=== PATIENT | male | born 1945 | race Caucasian/White ===

== ENCOUNTER 2017-08-15 00:47 | Emergency (ER) | payer MEDICARE, OTHER ==
[~2017-08-15] VITALS: Ht 167.6 cm; Wt 99.8 kg
[~2017-08-15 00:47] MED LIST: ACET325 PO; ALBIPROI INH; ALFU10 PO; ALLO100 PO; ALLO300 PO; AMIT50 PO; ASCO500 PO; ASPI325 PO; ASPI81CH PO; AZO STANDARD PO; Acidophilus La100 GM PO; BISA10S PR; CEFD300 PO; CHOL10002 PO; CIPR500 PO; CLIN300 PO; COLC.6 PO; Caffeine200 MG PO; Cytotec200 MCG PO; DOCU100 PO; DURLAZA162.5 MG PO; ENOX30I SC; FENT50TP; FENT50TP TOP; FENT75TP TOP; FERR325 PO; FINA5 PO; FISH1000 PO; FLUO20 PO; GABA100 PO; GABA300; GABA300 PO; GUAI600T33 PO; HYDCHL25 PO; HYOS.125 SL; INDAPAMIDE PO; INDO25 PO; INDO75CR PO; IRON PO; LAVAP17G PO; LEVFLO500 PO; LISI20 PO; LISI5 PO; Lisinopril2.5 MG PO; METCAR500; METCAR500 PO; METF500; METF500 PO; METH10 PO; METO25ER PO; METO50ER PO; MISO100; MISO200 PO; MULVITMIND PO; Milk Of Ma400 MG/5 M; NITR.4SL SL; Nitrostat0.4 MG SL; OLAN5 PO; OMEP10ER PO; OMEP20ER PO; OXYB5 PO; OXYB5ER PO; OXYC5; OXYC5 PO; OXYCODONE PO; Omeprazole20 M1 PO; POTA20PAC PO; POTCHL20ER PO; PRAV10 PO; PRAV20 PO; PREG50 PO; PREG75 PO; PROB500 PO; PROP65 PO; Prilosec Otc20 MG; Prozac20 MG; Prozac20 MG PO; Rocephin 1g1 G/50 ML IV; TAMS.4ER PO; TIVORBEX20 MG PO; TRIA55OI; [UNRECOGNIZED DRUG - OTHER]
[2017-08-15 02:20] LABS: BASOPHILS ABSOLUTE AUTO 0.12 K/mm3 (0.00-0.23); BASOPHILS PERCENT AUTO 1 % (0-2); EOSINOPHILS ABSOLUTE AUTO 0.69 K/mm3 (0.00-0.68); EOSINOPHILS PERCENT AUTO 7 % (0-6); Hematocrit 35.1 % (37.0-53.0); Hemoglobin 11.5 g/dL (13.5-17.5); IMMATURE GRAN ABSOLUTE AUTO 0.17 K/mm3 (0.00-0.10); IMMATURE GRAN PERCENT AUTO 2 % (0-1); LYMPHOCYTES ABSOLUTE AUTO 1.15 K/mm3 (0.84-5.20); LYMPHOCYTES PERCENT AUTO 11 % (21-46); MONOCYTES ABSOLUTE AUTO 0.67 K/mm3 (0.16-1.47); MONOCYTES PERCENT AUTO 6 % (4-13); Mean Corpuscular HGB 30.7 pg (26.0-34.0); Mean Corpuscular HGB Conc 32.8 g/dL (31.5-36.5); Mean Corpuscular Volume 94 fL (80-100); Mean Platelet Volume 9.1 fL (9.1-12.4); NEUTROPHILS ABSOLUTE AUTO 7.79 K/mm3 (1.96-9.15); NEUTROPHILS PERCENT AUTO 74 % (41-73); Platelet Count 242 K/mm3 (150-400); RDW Coefficient Variation 13.3 % (11.7-14.2); Red Blood Cell Count 3.74 M/mm3 (4.30-5.90); White Blood Cell Count 10.59 K/mm3 (4.00-11.30)
[2017-08-15 02:26] LABS: Alanine Aminotransfer (ALT/SGP 16 U/L (12-78); Albumin, Blood 2.9 g/dL (3.4-5.0); Albumin/Globulin Ratio 0.9 (0.8-1.8); Alk Phos 105 U/L (50-136); Anion Gap 12 mmol/L (6-16); Aspartate Aminotrans (AST/SGOT 13 U/L (12-37); Bilirubin, Total 0.3 mg/dL (0.1-1.0); Blood Urea Nitrogen 26 mg/dL (8-24); Bun/Creatinine Ratio 23.2 (12.0-20.0); CO2, Blood 22 mmol/L (21-32); Calcium, Blood 8.3 mg/dL (8.5-10.1); Chloride, Blood 108 mmol/L (98-108); Creatinine, Blood 1.12 mg/dL (0.60-1.20); Globulin, Blood 3.4 g/dL (2.2-4.0); Glomerular Filtration Rate >60 (60-); Glucose, Blood 182 mg/dL (70-99); Magnesium, Blood 1.5 mg/dL (1.6-2.4); Potassium, Blood 3.8 mmol/L (3.5-5.5); Sodium, Blood 142 mmol/L (136-145); Total Protein, Blood 6.3 g/dL (6.4-8.2)
== END 2017-08-15 04:37 | disposition home or self-care (01) ==
LOC: ER 00:47
PROVIDERS: Emergency Medicine
DX: R00.0 Tachycardia, unspecified (principal); G43.909 Migraine, unspecified, not intractable, without status migrainosus; Z88.0 Allergy status to penicillin; Z88.1 Allergy status to other antibiotic agents; Z88.8 Allergy status to other drugs, medicaments and biological substances; Z79.899 Other long term (current) drug therapy; Z79.891 Long term (current) use of opiate analgesic; Z79.84 Long term (current) use of oral hypoglycemic drugs; Z79.82 Long term (current) use of aspirin
CPT/HCPCS: 71046; 80053; 83735; 85025; 93005; 93010; 96360; 96361; 99283; J3475; J7030

== ENCOUNTER 2018-04-11 18:51 | Inpatient (IN) | payer MEDICARE, OTHER ==
[~2018-04-11] VITALS: Ht 165.1 cm; Wt 90.2 kg
[~2018-04-11 18:51] MED LIST changes: -METCAR500
[2018-04-11 19:16] LABS: BASOPHILS ABSOLUTE AUTO 0.11 K/mm3 (0.00-0.23); BASOPHILS PERCENT AUTO 1 % (0-2); EOSINOPHILS ABSOLUTE AUTO 0.04 K/mm3 (0.00-0.68); EOSINOPHILS PERCENT AUTO 0 % (0-6); Hematocrit 42.1 % (37.0-53.0); Hemoglobin 13.2 g/dL (13.5-17.5); IMMATURE GRAN ABSOLUTE AUTO 0.35 K/mm3 (0.00-0.10); IMMATURE GRAN PERCENT AUTO 3 % (0-1); LYMPHOCYTES ABSOLUTE AUTO 1.09 K/mm3 (0.84-5.20); LYMPHOCYTES PERCENT AUTO 9 % (21-46); MONOCYTES ABSOLUTE AUTO 0.77 K/mm3 (0.16-1.47); MONOCYTES PERCENT AUTO 6 % (4-13); Mean Corpuscular HGB 30.7 pg (26.0-34.0); Mean Corpuscular HGB Conc 31.4 g/dL (31.5-36.5); Mean Corpuscular Volume 98 fL (80-100); Mean Platelet Volume 8.6 fL (9.1-12.4); NEUTROPHILS ABSOLUTE AUTO 9.99 K/mm3 (1.96-9.15); NEUTROPHILS PERCENT AUTO 81 % (41-73); Platelet Count 353 K/mm3 (150-400); RDW Coefficient Variation 15.1 % (11.7-14.2); RDW Standard Deviation 54.3 fL (35.1-46.3); White Blood Cell Count 12.35 K/mm3 (4.00-11.30)
[2018-04-11 19:32] LABS: Alanine Aminotransfer (ALT/SGP 34 U/L (12-78); Albumin, Blood 3.3 g/dL (3.4-5.0); Albumin/Globulin Ratio 0.7 (0.8-1.8); Alk Phos 265 U/L (50-136); Anion Gap 9 mmol/L (6-16); Aspartate Aminotrans (AST/SGOT 16 U/L (12-37); Bilirubin, Total 0.3 mg/dL (0.1-1.0); Blood Urea Nitrogen 9 mg/dL (8-24); Bun/Creatinine Ratio 12.5 (12.0-20.0); CO2, Blood 26 mmol/L (21-32); Calcium, Blood 9.2 mg/dL (8.5-10.1); Chloride, Blood 106 mmol/L (98-108); Creatinine, Blood 0.72 mg/dL (0.60-1.20); Globulin, Blood 4.5 g/dL (2.2-4.0); Glomerular Filtration Rate >60 (60-); Glucose, Blood 123 mg/dL (70-99); Sodium, Blood 141 mmol/L (136-145); Total Protein, Blood 7.8 g/dL (6.4-8.2)
[2018-04-11] MEDS ORDERED: Elidel30 GM TOP (19:37)
[2018-04-11] MEDS ORDERED: FENT50TP (19:38)
[2018-04-11] MEDS ORDERED: FERSU90EL PO (19:39)
[2018-04-11] MEDS ORDERED: TAMS.4ER PO (19:39)
[2018-04-11] MEDS ORDERED: FURO20 PO (19:39)
[2018-04-11] MEDS ORDERED: HYOS.125 SL (19:40)
[2018-04-11] MEDS ORDERED: MONT4 PO (19:40)
[2018-04-11] MEDS ORDERED: NASACORT10.8 ML NS (19:40)
[2018-04-11] MEDS ORDERED: NITR.4SL SL (19:40)
[2018-04-11] MEDS ORDERED: Protopic100 G1 (19:41)
[2018-04-11] MEDS ORDERED: POTCHL10ER PO (19:41)
[2018-04-11 23:17] LABS: U Amphetamine Screen Not Detected; U Barbituate Screen Not Detected; U Benzodiazapine Screen Not Detected; U Buprenorphine Screen Not Detected; U Cannabinoids Screen Not Detected; U Cocaine Screen Not Detected; U Methadone Screen Not Detected; U Methamphetamine Screen Not Detected; U Opiates Screen Not Detected; U Oxycodone Screen Not Detected; U Phencyclidine Screen Not Detected; U Propoxyphene Screen Not Detected
[2018-04-11] MEDS ORDERED: FENT50TP TOP (23:43)
[2018-04-12 06:16] LABS: Alanine Aminotransfer (ALT/SGP 25 U/L (12-78); Albumin, Blood 3.1 g/dL (3.4-5.0); Albumin/Globulin Ratio 0.8 (0.8-1.8); Alk Phos 236 U/L (50-136); Anion Gap 8 mmol/L (6-16); Aspartate Aminotrans (AST/SGOT 19 U/L (12-37); Bilirubin, Total 0.5 mg/dL (0.1-1.0); Blood Urea Nitrogen 10 mg/dL (8-24); Bun/Creatinine Ratio 13.6 (12.0-20.0); CO2, Blood 26 mmol/L (21-32); Calcium, Blood 9.1 mg/dL (8.5-10.1); Chloride, Blood 108 mmol/L (98-108); Creatinine, Blood 0.73 mg/dL (0.60-1.20); Globulin, Blood 3.8 g/dL (2.2-4.0); Glomerular Filtration Rate >60 (60-); Glucose, Blood 111 mg/dL (70-99); Sodium, Blood 142 mmol/L (136-145); Total Protein, Blood 6.9 g/dL (6.4-8.2)
[2018-04-12] MEDS ORDERED: Neurontin300 MG PO (18:21)
[2018-04-12] MEDS ORDERED: GABA300 PO (18:21)
[2018-04-12] MEDS ORDERED: METF500C PO (18:21)
[2018-04-12] MEDS ORDERED: Lasix20 MG PO (18:22)
[2018-04-12] MEDS ORDERED: COMBIVENT RESPIM4 GM INH (18:22)
[2018-04-12] MEDS ORDERED: HYOS.125 SL (18:23)
[2018-04-12] MEDS ORDERED: SANTYL30 GM TOP (18:23)
[2018-04-12] MEDS ORDERED: ASPI325 PO (18:24)
[2018-04-12] MEDS ORDERED: MONT10T PO (18:24)
[2018-04-13 05:26] LABS: BASOPHILS ABSOLUTE AUTO 0.14 K/mm3 (0.00-0.23); BASOPHILS PERCENT AUTO 1 % (0-2); EOSINOPHILS ABSOLUTE AUTO 0.22 K/mm3 (0.00-0.68); EOSINOPHILS PERCENT AUTO 1 % (0-6); Hematocrit 43.4 % (37.0-53.0); Hemoglobin 13.7 g/dL (13.5-17.5); IMMATURE GRAN ABSOLUTE AUTO 0.21 K/mm3 (0.00-0.10); IMMATURE GRAN PERCENT AUTO 1 % (0-1); LYMPHOCYTES PERCENT AUTO 11 % (21-46); MONOCYTES ABSOLUTE AUTO 1.17 K/mm3 (0.16-1.47); MONOCYTES PERCENT AUTO 7 % (4-13); Mean Corpuscular HGB 30.6 pg (26.0-34.0); Mean Corpuscular HGB Conc 31.6 g/dL (31.5-36.5); Mean Corpuscular Volume 97 fL (80-100); Mean Platelet Volume 8.8 fL (9.1-12.4); NEUTROPHILS ABSOLUTE AUTO 12.74 K/mm3 (1.96-9.15); NEUTROPHILS PERCENT AUTO 79 % (41-73); Platelet Count 334 K/mm3 (150-400); RDW Coefficient Variation 15.3 % (11.7-14.2); RDW Standard Deviation 54.3 fL (35.1-46.3); Red Blood Cell Count 4.48 M/mm3 (4.30-5.90); White Blood Cell Count 16.18 K/mm3 (4.00-11.30)
[2018-04-13 05:45] LABS: Anion Gap 10 mmol/L (6-16); Blood Urea Nitrogen 17 mg/dL (8-24); CO2, Blood 27 mmol/L (21-32); Calcium, Blood 9.2 mg/dL (8.5-10.1); Chloride, Blood 107 mmol/L (98-108); Creatinine, Blood 0.81 mg/dL (0.60-1.20); Glomerular Filtration Rate >60 (60-); Glucose, Blood 193 mg/dL (70-99); Potassium, Blood 3.6 mmol/L (3.5-5.5); Sodium, Blood 144 mmol/L (136-145)
[2018-04-13 13:28] LABS: BASOPHILS ABSOLUTE AUTO 0.11 K/mm3 (0.00-0.23); BASOPHILS PERCENT AUTO 1 % (0-2); EOSINOPHILS ABSOLUTE AUTO 0.19 K/mm3 (0.00-0.68); EOSINOPHILS PERCENT AUTO 1 % (0-6); Hematocrit 44.9 % (37.0-53.0); Hemoglobin 14.3 g/dL (13.5-17.5); IMMATURE GRAN ABSOLUTE AUTO 0.19 K/mm3 (0.00-0.10); IMMATURE GRAN PERCENT AUTO 1 % (0-1); LYMPHOCYTES ABSOLUTE AUTO 1.65 K/mm3 (0.84-5.20); LYMPHOCYTES PERCENT AUTO 10 % (21-46); MONOCYTES ABSOLUTE AUTO 1.23 K/mm3 (0.16-1.47); MONOCYTES PERCENT AUTO 7 % (4-13); Mean Corpuscular HGB 30.8 pg (26.0-34.0); Mean Corpuscular HGB Conc 31.8 g/dL (31.5-36.5); Mean Corpuscular Volume 97 fL (80-100); Mean Platelet Volume 8.8 fL (9.1-12.4); NEUTROPHILS ABSOLUTE AUTO 13.33 K/mm3 (1.96-9.15); NEUTROPHILS PERCENT AUTO 80 % (41-73); Platelet Count 375 K/mm3 (150-400); RDW Coefficient Variation 15.3 % (11.7-14.2); RDW Standard Deviation 53.7 fL (35.1-46.3); Red Blood Cell Count 4.64 M/mm3 (4.30-5.90)
== END 2018-04-13 16:33 | disposition home health service (06) | DRG 884 ==
LOC: ER 18:51 → MEDS 21:07
PROVIDERS: Emergency Medicine; Student in an Organized Health Care Education/Training Program; ADMIT Internal Medicine
DX: F03.91 Unspecified dementia, unspecified severity, with behavioral disturbance (principal); F05 Delirium due to known physiological condition; G43.109 Migraine with aura, not intractable, without status migrainosus; E11.9 Type 2 diabetes mellitus without complications; Z89.511 Acquired absence of right leg below knee; E78.5 Hyperlipidemia, unspecified; I10 Essential (primary) hypertension; L30.9 Dermatitis, unspecified; M10.9 Gout, unspecified; N40.0 Benign prostatic hyperplasia without lower urinary tract symptoms; F32.9 Major depressive disorder, single episode, unspecified
CPT/HCPCS: 36415; 70450; 70496; 70498; 71046; 80048; 80053; 82947; 84145; 85025; 85651; 86140; 87040; 87086; 93005; 93010; 97110; 97161; 97530; 99285-25; J3010; J7030; Q9967

== ENCOUNTER → 2018-06-23 | Outpatient (CLI) | payer MEDICARE, OTHER ==
[~2018-06-23] MED LIST changes: +COMBIVENT RESPIM4 GM INH; +Elidel30 GM TOP; +FERSU90EL PO; +FURO20 PO; +Lasix20 MG PO; +METF500C PO; +MONT10T PO; +MONT4 PO; +NASACORT10.8 ML NS; +Neurontin300 MG PO; +POTCHL10ER PO; +Protopic100 G1; +SANTYL30 GM TOP
== END | disposition home or self-care (01) ==
LOC: LAB SHORT 16:00 → LAB EV 16:00
DX: N39.0 Urinary tract infection, site not specified (principal)
CPT/HCPCS: 87077; 87086; 87147; 87186

== ENCOUNTER 2018-12-12 10:00 | Day surgery (SDC) | payer MEDICARE, OTHER ==
[~2018-12-12] VITALS: Ht 167.6 cm; Wt 94.6 kg
[~2018-12-12 10:00] MED LIST changes: +ACIDOPHILUS1 EACH PO; +ASPI325EC PO; +AZO CRANBERRY1 EAC1 PO; +Fentanyl1 EAC2 TOP; +GABA100; +Ipratropium Bro30 ML; +KAPSPARGO SPRIN50 MG; +Multiple Vitam1 EAC1 PO; +OMEPRAZOLE20 MG PO; +Pravachol80 MG PO; +Robaxin-750750 MG PO; +VITAMIN D350000 UNIT PO
== END 2018-12-12 12:53 | disposition home or self-care (01) ==
LOC: ORSCSDS 10:00
PROVIDERS: Internal Medicine Gastroenterology
PROC: 0D758ZZ Dilation of Esophagus, Via Natural or Artificial Opening Endoscopic (ICD-10-PCS; principal; 2018-12-12 11:15)
PROC: 0DB98ZX Excision of Duodenum, Via Natural or Artificial Opening Endoscopic, Diagnostic (ICD-10-PCS; principal; 2018-12-12 11:15)
PROC: 0DB58ZX Excision of Esophagus, Via Natural or Artificial Opening Endoscopic, Diagnostic (ICD-10-PCS; principal; 2018-12-12 11:15)
PROC: 0DB68ZX Excision of Stomach, Via Natural or Artificial Opening Endoscopic, Diagnostic (ICD-10-PCS; principal; 2018-12-12 11:15)
DX: R13.10 Dysphagia, unspecified (principal); K29.70 Gastritis, unspecified, without bleeding; K22.10 Ulcer of esophagus without bleeding; K29.50 Unspecified chronic gastritis without bleeding; I10 Essential (primary) hypertension; E78.5 Hyperlipidemia, unspecified; E11.9 Type 2 diabetes mellitus without complications; Z79.899 Other long term (current) drug therapy
CPT/HCPCS: 82947; 88305; 88342; J2704; J7120

== ENCOUNTER 2019-04-03 13:30 | Emergency (ER) | payer MEDICARE, OTHER ==
[~2019-04-03] VITALS: Ht 167.6 cm; Wt 96.6 kg
[2019-04-03 14:39] LABS: BASOPHILS ABSOLUTE AUTO 0.08 K/mm3 (0.00-0.23); BASOPHILS PERCENT AUTO 1 % (0-2); EOSINOPHILS ABSOLUTE AUTO 0.01 K/mm3 (0.00-0.68); EOSINOPHILS PERCENT AUTO 0 % (0-6); Hematocrit 36.3 % (37.0-53.0); Hemoglobin 11.2 g/dL (13.5-17.5); IMMATURE GRAN ABSOLUTE AUTO 0.29 K/mm3 (0.00-0.10); IMMATURE GRAN PERCENT AUTO 2 % (0-1); LYMPHOCYTES ABSOLUTE AUTO 0.98 K/mm3 (0.84-5.20); LYMPHOCYTES PERCENT AUTO 8 % (21-46); MONOCYTES ABSOLUTE AUTO 0.46 K/mm3 (0.16-1.47); MONOCYTES PERCENT AUTO 4 % (4-13); Mean Corpuscular HGB 28.4 pg (26.0-34.0); Mean Corpuscular HGB Conc 30.9 g/dL (31.5-36.5); Mean Corpuscular Volume 92 fL (80-100); Mean Platelet Volume 9.7 fL (9.1-12.4); NEUTROPHILS PERCENT AUTO 86 % (41-73); Platelet Count 103 K/mm3 (150-400); RDW Coefficient Variation 15.5 % (11.7-14.2); Red Blood Cell Count 3.94 M/mm3 (4.30-5.90); White Blood Cell Count 12.52 K/mm3 (4.00-11.30)
[2019-04-03 14:58] LABS: Alanine Aminotransfer (ALT/SGP 9 U/L (12-78); Albumin, Blood 1.6 g/dL (3.4-5.0); Albumin/Globulin Ratio 0.3 (0.8-1.8); Alk Phos 141 U/L (50-136); Anion Gap 6 mmol/L (6-16); Aspartate Aminotrans (AST/SGOT 10 U/L (12-37); Bilirubin, Total 0.4 mg/dL (0.1-1.0); Blood Urea Nitrogen 14 mg/dL (8-24); Bun/Creatinine Ratio 17.5 (12.0-20.0); CO2, Blood 25 mmol/L (21-32); Chloride, Blood 106 mmol/L (98-108); Glomerular Filtration Rate >60 (60-); Glucose, Blood 134 mg/dL (70-99); Potassium, Blood 3.7 mmol/L (3.5-5.5); Sodium, Blood 137 mmol/L (136-145); Total Protein, Blood 6.6 g/dL (6.4-8.2)
[2019-04-03 16:40] LABS: Source, Urine Clean Catch
[2019-04-03 16:47] LABS: Bilirubin, Urine Neg (Neg); Blood, Urine Neg (Neg); Glucose Qualitative, Urine Neg (Neg); Ketones, Urine 2+ (Neg); Leukocyte Esterase, Urine Neg (Neg); Nitrite, Urine Neg (Neg); Protein, Urine Neg (Neg); Specific Gravity, Urine 1.015 (1.003-1.022); Urobilinogen, Urine NORM (Normal)
[2019-04-03 16:54] LABS: Appearance, Urine Clear (Clear); Color, Urine Yellow (P-Yellow)
[2019-04-03] MEDS ORDERED: ONDA4ODT MM (17:51)
== END 2019-04-03 18:08 | disposition home or self-care (01) ==
LOC: ER 13:30
PROVIDERS: Physician Assistant
DX: K29.70 Gastritis, unspecified, without bleeding (principal); K29.80 Duodenitis without bleeding; G43.909 Migraine, unspecified, not intractable, without status migrainosus; Z88.0 Allergy status to penicillin; Z88.1 Allergy status to other antibiotic agents; Z88.8 Allergy status to other drugs, medicaments and biological substances; Z79.899 Other long term (current) drug therapy; Z79.84 Long term (current) use of oral hypoglycemic drugs; Z79.82 Long term (current) use of aspirin
CPT/HCPCS: 36415; 74177; 80053; 81003; 83690; 85025; 86850; 86900; 86901; 96361; 96374-59; 96375; 99284-25; C9113; J1170; J1200; J2405; J2765; J3010; J7030; Q9967

== ENCOUNTER 2019-04-11 03:41 | Emergency (ER) | payer MEDICARE, OTHER ==
[~2019-04-11] VITALS: Ht 177.8 cm; Wt 79.4 kg
[~2019-04-11 03:41] MED LIST changes: -GABA100; +ONDA4ODT MM
[2019-04-11 04:06] LABS: BASOPHILS ABSOLUTE AUTO 0.12 K/mm3 (0.00-0.23); BASOPHILS PERCENT AUTO 2 % (0-2); EOSINOPHILS ABSOLUTE AUTO 0.12 K/mm3 (0.00-0.68); EOSINOPHILS PERCENT AUTO 2 % (0-6); Hematocrit 35.5 % (37.0-53.0); Hemoglobin 10.6 g/dL (13.5-17.5); IMMATURE GRAN ABSOLUTE AUTO 0.09 K/mm3 (0.00-0.10); IMMATURE GRAN PERCENT AUTO 1 % (0-1); LYMPHOCYTES ABSOLUTE AUTO 1.58 K/mm3 (0.84-5.20); LYMPHOCYTES PERCENT AUTO 24 % (21-46); MONOCYTES ABSOLUTE AUTO 0.68 K/mm3 (0.16-1.47); MONOCYTES PERCENT AUTO 10 % (4-13); Mean Corpuscular HGB 28.3 pg (26.0-34.0); Mean Corpuscular HGB Conc 29.9 g/dL (31.5-36.5); Mean Platelet Volume 9.4 fL (9.1-12.4); NEUTROPHILS ABSOLUTE AUTO 4.09 K/mm3 (1.96-9.15); NEUTROPHILS PERCENT AUTO 61 % (41-73); Platelet Count 165 K/mm3 (150-400); RDW Coefficient Variation 16.5 % (11.7-14.2); RDW Standard Deviation 58.2 fL (35.1-46.3); Red Blood Cell Count 3.75 M/mm3 (4.30-5.90); White Blood Cell Count 6.68 K/mm3 (4.00-11.30)
[2019-04-11 04:07] LABS: Mean Corpuscular Volume 95 fL (80-100)
[2019-04-11 04:20] LABS: Prothrombin Time Results 10.7 Sec (9.7-11.5)
[2019-04-11 04:24] LABS: Alanine Aminotransfer (ALT/SGP 7 U/L (12-78); Albumin, Blood 1.6 g/dL (3.4-5.0); Albumin/Globulin Ratio 0.4 (0.8-1.8); Alk Phos 127 U/L (50-136); Anion Gap 4 mmol/L (6-16); Aspartate Aminotrans (AST/SGOT 14 U/L (12-37); Bilirubin, Total 0.3 mg/dL (0.1-1.0); Blood Urea Nitrogen 9 mg/dL (8-24); Bun/Creatinine Ratio 14.3 (12.0-20.0); CO2, Blood 28 mmol/L (21-32); Calcium, Blood 8.1 mg/dL (8.5-10.1); Chloride, Blood 110 mmol/L (98-108); Creatinine, Blood 0.63 mg/dL (0.60-1.20); Ethanol (Alcohol), Blood, Med <3 mg/dL; Globulin, Blood 4.5 g/dL (2.2-4.0); Glomerular Filtration Rate >60 (60-); Glucose, Blood 85 mg/dL (70-99); Potassium, Blood 3.9 mmol/L (3.5-5.5); Sodium, Blood 142 mmol/L (136-145); Total Protein, Blood 6.1 g/dL (6.4-8.2)
[2019-04-11 05:11] LABS: Source, Urine Catheter
[2019-04-11 05:15] LABS: Bilirubin, Urine Neg (Neg); Blood, Urine Neg (Neg); Glucose Qualitative, Urine Neg (Neg); Ketones, Urine 3+ (Neg); Leukocyte Esterase, Urine Neg (Neg); Nitrite, Urine Neg (Neg); Protein, Urine Neg (Neg); Urobilinogen, Urine NORM (Normal)
[2019-04-11 05:37] LABS: Appearance, Urine Clear (Clear); Color, Urine Yellow (P-Yellow)
[2019-04-11] MEDS ORDERED: METO25ER PO (19:52)
[2019-04-11] MEDS ORDERED: TAMS.4ER PO (19:54)
[2019-04-15] MEDS ORDERED: ALLOPURINOL100 M1 (14:18)
== END 2019-04-11 08:00 | disposition home or self-care (01) ==
LOC: ER 03:41
PROVIDERS: Emergency Medicine
DX: R41.0 Disorientation, unspecified (principal); I10 Essential (primary) hypertension; E11.9 Type 2 diabetes mellitus without complications; G43.909 Migraine, unspecified, not intractable, without status migrainosus; N40.0 Benign prostatic hyperplasia without lower urinary tract symptoms; Z88.0 Allergy status to penicillin; Z88.8 Allergy status to other drugs, medicaments and biological substances; Z88.1 Allergy status to other antibiotic agents; Z79.899 Other long term (current) drug therapy; Z79.84 Long term (current) use of oral hypoglycemic drugs; Z79.82 Long term (current) use of aspirin; Z89.111 Acquired absence of right hand; W06.XXXA Fall from bed, initial encounter
CPT/HCPCS: 36415; 51701; 70450; 80053; 81003; 82947; 85025; 85610; 93005; 93010; 99284-25; G0480

== ENCOUNTER 2019-04-11 14:53 | Inpatient (IN) | payer MEDICARE, OTHER ==
[~2019-04-11] VITALS: Ht 172.7 cm; Wt 79.2 kg
[~2019-04-11 14:53] MED LIST changes: -Pravachol80 MG PO; +Pravastatin Sod80 MG PO
[2019-04-11 15:23] LABS: BASOPHILS ABSOLUTE AUTO 0.12 K/mm3 (0.00-0.23); BASOPHILS PERCENT AUTO 2 % (0-2); EOSINOPHILS PERCENT AUTO 1 % (0-6); Hemoglobin 10.5 g/dL (13.5-17.5); IMMATURE GRAN ABSOLUTE AUTO 0.11 K/mm3 (0.00-0.10); IMMATURE GRAN PERCENT AUTO 2 % (0-1); LYMPHOCYTES ABSOLUTE AUTO 1.63 K/mm3 (0.84-5.20); LYMPHOCYTES PERCENT AUTO 22 % (21-46); MONOCYTES ABSOLUTE AUTO 0.63 K/mm3 (0.16-1.47); MONOCYTES PERCENT AUTO 9 % (4-13); Mean Corpuscular HGB 28.2 pg (26.0-34.0); Mean Corpuscular Volume 94 fL (80-100); Mean Platelet Volume 10.1 fL (9.1-12.4); NEUTROPHILS ABSOLUTE AUTO 4.78 K/mm3 (1.96-9.15); NEUTROPHILS PERCENT AUTO 65 % (41-73); Platelet Count 116 K/mm3 (150-400); RDW Coefficient Variation 16.5 % (11.7-14.2); RDW Standard Deviation 55.8 fL (35.1-46.3); Red Blood Cell Count 3.73 M/mm3 (4.30-5.90); White Blood Cell Count 7.37 K/mm3 (4.00-11.30)
[2019-04-11 16:10] LABS: Anion Gap 8 mmol/L (6-16); Blood Urea Nitrogen 10 mg/dL (8-24); Bun/Creatinine Ratio 15.8 (12.0-20.0); CO2, Blood 24 mmol/L (21-32); Calcium, Blood 8.4 mg/dL (8.5-10.1); Chloride, Blood 109 mmol/L (98-108); Creatinine, Blood 0.63 mg/dL (0.60-1.20); Glomerular Filtration Rate >60 (60-); Glucose, Blood 78 mg/dL (70-99); Sodium, Blood 141 mmol/L (136-145)
--- NOTE | 2019-04-11 19:11 | NUR ---
ADMIT NOTE- PT ADMITTED THROUGH THE ED FOR ALTERED MENTAL STATUS ARRIVED AT 1830 ADMIT ASSESSMENT COMPLETED AND IVF STARTED AND IV PROTONIX ADMINISTERED UPON THE PT ARRIVAL ON MEDICAL FLOOR. PT IS VERY AGREEABLE BUT TOTALLY CONFUSED. PT CAN NOT FOLLOW BASIC COMMANDS AND ANSWERS ALMOST ALL QUESTIONS WITH A WORD FOR THE AFFERMATIVE (YEP, SURE, OK, YES, YOU BET) PLEASENTLY CONFUSED. REPORT PASSED TO NIGHT NIRMAL CATALAN IN REPORT. 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
--- NOTE | 2019-04-11 19:43 | NUR ---
REPORT RECEIVED FROM NIRMAL CERVANTES; RESTING COMFORTABLY IN BED.
[2019-04-11] MEDS ORDERED: METO25ER PO (19:52)
[2019-04-11] MEDS ORDERED: TAMS.4ER PO (19:54)
--- NOTE | 2019-04-12 04:22 | NUR ---
SHIFT SUMMARY: 74 Y/O MALE RESTED COMFORTABLY ALL SHIFT; PT INCONTINENT URINE WITH ATTENDS DIAPERS CHANGED BY NURSING STAFF; PT ALERT TO PERSON ONLY WITH ALL SPEECH GARBLED; PT APPEARS TO HAVE NO PAIN OR NAUSEA; BED ALARM APPLIED, BED LOW POSITION WITH CALL LIGHT AT SIDE; CURRENTLY NPO.
[2019-04-12 06:19] LABS: BASOPHILS ABSOLUTE AUTO 0.12 K/mm3 (0.00-0.23); BASOPHILS PERCENT AUTO 2 % (0-2); EOSINOPHILS PERCENT AUTO 4 % (0-6); Hematocrit 31.1 % (37.0-53.0); Hemoglobin 9.4 g/dL (13.5-17.5); IMMATURE GRAN ABSOLUTE AUTO 0.08 K/mm3 (0.00-0.10); IMMATURE GRAN PERCENT AUTO 2 % (0-1); LYMPHOCYTES PERCENT AUTO 27 % (21-46); MONOCYTES PERCENT AUTO 10 % (4-13); Mean Corpuscular HGB 28.7 pg (26.0-34.0); Mean Corpuscular HGB Conc 30.2 g/dL (31.5-36.5); Mean Corpuscular Volume 95 fL (80-100); NEUTROPHILS ABSOLUTE AUTO 2.82 K/mm3 (1.96-9.15); NEUTROPHILS PERCENT AUTO 55 % (41-73); Platelet Count 311 K/mm3 (150-400); RDW Coefficient Variation 16.7 % (11.7-14.2); RDW Standard Deviation 58.2 fL (35.1-46.3); Red Blood Cell Count 3.28 M/mm3 (4.30-5.90); White Blood Cell Count 5.12 K/mm3 (4.00-11.30)
[2019-04-12 06:42] LABS: Magnesium, Blood 1.4 mg/dL (1.6-2.4); Troponin I 0.017 ng/mL (0.000-0.040)
[2019-04-12 06:54] LABS: Alanine Aminotransfer (ALT/SGP <6 U/L (12-78); Albumin, Blood 1.4 g/dL (3.4-5.0); Albumin/Globulin Ratio 0.4 (0.8-1.8); Alk Phos 104 U/L (50-136); Anion Gap 5 mmol/L (6-16); Aspartate Aminotrans (AST/SGOT 12 U/L (12-37); Bilirubin, Total 0.5 mg/dL (0.1-1.0); Blood Urea Nitrogen 9 mg/dL (8-24); Bun/Creatinine Ratio 13.8 (12.0-20.0); CO2, Blood 26 mmol/L (21-32); Calcium, Blood 7.7 mg/dL (8.5-10.1); Chloride, Blood 113 mmol/L (98-108); Creatinine, Blood 0.65 mg/dL (0.60-1.20); Globulin, Blood 3.8 g/dL (2.2-4.0); Glomerular Filtration Rate >60 (60-); Glucose, Blood 74 mg/dL (70-99); Potassium, Blood 3.8 mmol/L (3.5-5.5); Sodium, Blood 144 mmol/L (136-145); Total Protein, Blood 5.2 g/dL (6.4-8.2)
--- NOTE | 2019-04-12 07:00 | NUR ---
ASSUMED CARE OF PT- PER REPORT PT SLEPT THROUGH THE NIGHT ADMIT COMPLETED BY THE NIGHT JANITOR SUPERVISOR, HOME MEDS RECONCILED. PT HAS NO S&S OF DISTRESS OR PAIN NOTED AT SHIFT CHANGE.
--- NOTE | 2019-04-12 07:40 | NUR ---
PT APPEARS TO BE LESS AWARE OF HIS SURROUNDINGS THAN AT THE END OF THE SHIFT LAST NIGHT. PT ANSWERS LAST NIGHT WERE ALL AFFERMATIVE (SEE PREVIOUS NOTE FOR DETAILS). PT IS CURRENTLY ANSWERING YES, YES, YES. MUMBLED SPEECH, NOT ANSWERING APPROPRIATELY RIGHT PUPIL IS 2 MM SMALLER THAN THE LEFT LEFT PUPIL IS SLUGGISH AND MIS-SHAPEN RIGHT PUPIL IS BRISK. PT HAS SOME MILDE FACIAL EDEMA ON THE LEFT (LAYING ON HIS LEFT SIDE). TWO STAFF REPOSITIONED THE PT IN BED, PT TRYING TO ROLL ON TO HIS LEFT SIDE, NOT RESPONDING TO STAFF DOES NOT OPEN HIS EYES WHEN THE STAFF SPEAK TO HIM. NOT ABLE TO DO A FULL NEURO ASSEMENT D/T PT NOT WAKING UP. LEFT SIDE OF MOUTH APPEARS MORE DROOPY THAN THE RIGHT, COULD BE RELATED TO THE SLIGHT EDEMA NOTED. SPOKE TO DR MCKEON AND HE CAME TO THE BEDSIDE TO ASSESS THE PT. ASKED BOUT X-RAYS ORDERED YESTERDAY NOT CURRENTLY AVAILABLE (WERE THEY DONE YET). CALLED IMMAGING TO VERIFY THE IMAGES WERE DONE IN THE ED YESTERDAY AND THEY WERE BUT THEY HAVE NOT YET BEEN READ. TECH WILL ASK THE RADIOLOGIST TO VIEW THEM SHORTLY. DR MCKEON IS AWARE. NEW ORDER RECIEVED FOR AC/HS BLOOD SUGARS, PT BG AT THE TIME OF THIS EVENT WAS 75. RECIEVED A OT ORDER FOR AN AMP OF D50. THAT WAS GIVEN SOON POSSIBLE. ORDER RECIEVED FOR ANOTHER UA FOR THIS PT WELL. PER DR KELLY CATH CAN BE DONE TO OBTAIN THE SAMPLE PT IS NOT COGNISANT AT THIS TIME.
--- NOTE | 2019-04-12 10:51 | NUR ---
CAMPOS PLACEMENT- PT HAS A Hx OF BPH WITH TURP X3. SPOKE TO DR MCKEON PT HAS NOT VOIDED AND A UA WAS ORDERED. BLADDER SCAN SHOWS 491ML. ORDER RECIEVED FOR CAMPOS CATHETER FOR RETENTION. TWO RNS MADE MULTIPLE ATTEMPTS TO PLACE A CAMPOS USEING THE COUDE TIP 16 AND 14 WELL ATTEMPTING WITH THE STIFFER STRAIGHT CATH. CAN NOT GET PASSED THE PROSTATE. SPOKE TO HE IS AWARE ATTEMPTS FAILED. STERILE FIELD MAINTAINED DURRING THE ATTEMPTS, NO URINE FLASH WAS WHITNESSED. SOME LITGHT PINK NOTED ON THE CATHETER TIP LIKELY FROM TRAUMA FROM THE INSERTION PROCESS. SPOKE TO , THERE IS NO UROLOGIST IN [facility], ORDER TO CONTINUE TO MONITOR AT THIS TIME BLADDER SCAN PRN ORDER PLACED. WILL CALL DR IF THE PT STILL HAS NOT VOIDED AND THE VOLUME INCREASES GREATLY. PT STILL NOT COGNITIVELY AWARE OF HIS SURROUNDINGS. WILL CTM.
--- NOTE | 2019-04-12 12:49 | NUR ---
PT ATTEMPTED TO GET OUT OF BED- PT IS ON THE MONITOR, SUPERINTENDENT HOUSE CALLED PT WAS ATTEMPTING TO GET OUT OF BED. WHEN STAFF ENTERED THE ROOM PT WAS BACK IN THE SAME POSITION THAT HE HAS BEEN IN. PT HAD VOIDED A LARGE AMOUNT OF URINE IN HIS ATTENDS. ATTEND CHANGE AND RDZ CHANGED. PT SEEMS TO BE MORE ALERT THAN EARLIER AND SEEMS TO BE ATTEMPTING TO FOLLOW SOME VERY BASIC COMMANDS. BG AT THIS TIME IS 79. BG THIS MORNING WAS 75 THEN AN AMP OF D50 WAS GIVEN BG WAS 148 ON RECHECK, PT DID NOT APPEAR TO HAVE ANY COGNITIVE IMPROVEMENT. CALLED AND RECIEVED AN ORDER FOR D5 WITH 1/2NS AND 20KCL. D/T PT BEING UNABLE TO SAFELY EAT OR TAKE MEDICATIONS (DR AWARE).
--- NOTE | 2019-04-12 14:20 | NUR ---
RECIEVED A CALL FROM THE LAB- PT HAS POSSITIVE BLOOD CULTURES POSSITIVE FOR GRAM POSSITIVE COCCI IN CLUSTERS. PAGED DR MCKEON WITH THE RESULT. WAITING FOR A CALL BACK.
--- NOTE | 2019-04-12 14:26 | NUR ---
RECIEVED A CALL FROM DR MCKEON NEW ORDER FOR IV ABX TO START NOW. PLACED IN THE PT CHART THROUGH ORDERMANAGEMENT.
--- NOTE | 2019-04-12 19:24 | NUR ---
SHIFT SUMMARY- PT STILL MOSTLY NON-RESPONSIVE. KEEPING NPO AT THIS TIME FOR ASPIRATION PRECAUTIONS D/T UNCONCIOUSNESS. PT WILL OCCASSIONALLY RESPOND TO STAFF WITH "YEAH" OR "OK." UNABLE TO PERFORM A NEURO ASSESSMENT D/T PT LEVEL OF CONCIOUSNESS. PT HAS NO S&S OF DISTRESS. CBG'S ORDERED AC/HS AND PRN. BLADDER SCAN Q6 CALL DR FOR VOLUME GREATER THAN 800ML. UNABLE TO PLACE CAMPOS (SEE PREVIOUS NOTE FOR DETAILS).
--- NOTE | 2019-04-13 00:58 | NUR ---
PERFORMED BLADDER SCAN PER ORDER. NOTED 438ML IN BLADDER. WILL CONT TO MONITOR.
--- NOTE | 2019-04-13 04:33 | NUR ---
SHIFT SUMMARY- PT. LETHARGIC T/O THE SHIFT. RESPONDS TO HIS NAME BEING CALLED WITH "YES", BUT OTHERWISE UNABLE TO RESPOND APPROPRIATELY TO OTHER QUESTIONS. PT. RESTED COMFORTABLY IN BED DURING THE NIGHT, NO APPARENT DISTRESS NOTED. SCHEDULED MEDS HELD DUE TO LOC. BLADDER SCAN DONE PER ORDER, PT. TOLERATED WELL. PT. INCONTINENT, SATURATED BRIEF EARLY THIS AM. REPOSITIONED Q2H AND PRN. IV FLUIDS RUNNING. CALL LIGHT WITHIN REACH, SIDE RAILS UP X2, AND BED ALARM ON SAFETY. WILL CONT TO MONITOR.
[2019-04-13 06:00] LABS: BASOPHILS ABSOLUTE AUTO 0.15 K/mm3 (0.00-0.23); BASOPHILS PERCENT AUTO 2 % (0-2); EOSINOPHILS ABSOLUTE AUTO 0.21 K/mm3 (0.00-0.68); EOSINOPHILS PERCENT AUTO 3 % (0-6); Hematocrit 33.1 % (37.0-53.0); Hemoglobin 9.8 g/dL (13.5-17.5); IMMATURE GRAN ABSOLUTE AUTO 0.11 K/mm3 (0.00-0.10); IMMATURE GRAN PERCENT AUTO 2 % (0-1); LYMPHOCYTES ABSOLUTE AUTO 1.29 K/mm3 (0.84-5.20); LYMPHOCYTES PERCENT AUTO 20 % (21-46); MONOCYTES ABSOLUTE AUTO 0.57 K/mm3 (0.16-1.47); MONOCYTES PERCENT AUTO 9 % (4-13); Mean Corpuscular HGB 28.1 pg (26.0-34.0); Mean Corpuscular HGB Conc 29.6 g/dL (31.5-36.5); Mean Corpuscular Volume 95 fL (80-100); NEUTROPHILS ABSOLUTE AUTO 4.06 K/mm3 (1.96-9.15); NEUTROPHILS PERCENT AUTO 64 % (41-73); Platelet Count 269 K/mm3 (150-400); RDW Coefficient Variation 16.8 % (11.7-14.2); RDW Standard Deviation 57.9 fL (35.1-46.3); Red Blood Cell Count 3.49 M/mm3 (4.30-5.90); White Blood Cell Count 6.39 K/mm3 (4.00-11.30)
[2019-04-13 06:16] LABS: Albumin, Blood 1.4 g/dL (3.4-5.0); Anion Gap 5 mmol/L (6-16); Blood Urea Nitrogen 6 mg/dL (8-24); Bun/Creatinine Ratio 10.2 (12.0-20.0); CO2, Blood 26 mmol/L (21-32); Calcium, Blood 7.9 mg/dL (8.5-10.1); Chloride, Blood 111 mmol/L (98-108); Creatinine, Blood 0.59 mg/dL (0.60-1.20); Glomerular Filtration Rate >60 (60-); Glucose, Blood 85 mg/dL (70-99); Magnesium, Blood 1.2 mg/dL (1.6-2.4); Phosphorus, Blood 2.5 mg/dL (2.5-4.9); Potassium, Blood 3.6 mmol/L (3.5-5.5); Sodium, Blood 142 mmol/L (136-145)
--- NOTE | 2019-04-13 09:30 | NUR ---
PT PLEASANT ANSWERING YES NO. [facility] FINALLY ABLE TO TELL ME OLD [facility], [facility]. STATES NO , NO CHILDREN, UNABLE TOTELL ME AGE, DID TELL . DENIES PAIN. ABLE TOTAKE PO PILLS WITH WATER. DID WELL. UNABLE TO TELL ME WHEN LEG AMPUTATED. STATES SISTER KENYETTA:?, NO FURTHER INFO PROVIDED. H/R REG, MURMER NOTED. NO TELE. LUNGS CLEAR, RESP EASY, UNLABORED. RESTING ON L SIDE, SOME EDEMA AT L EYE AREA. BT X4 LAST BM UNKNOWN BY PT. VOIDS INCONT IN ATTENDS. RT BKA. BED BOUND AT THIS TIME. BED IN LOW POSITION, NARCISA LITE IN REACH, BED ALARM ON FOR SAFETY
[2019-04-13 12:05] LABS: Source, Urine Catheter
[2019-04-13 12:56] LABS: U Amphetamine Screen Not Detected; U Barbituate Screen Not Detected; U Benzodiazapine Screen Not Detected; U Cannabinoids Screen Not Detected; U Cocaine Screen Not Detected; U Methadone Screen Not Detected; U Methamphetamine Screen Not Detected; U Opiates Screen Not Detected
[2019-04-13 12:57] LABS: U Buprenorphine Screen Not Detected; U Oxycodone Screen Not Detected; U Propoxyphene Screen Not Detected
[2019-04-13 13:11] LABS: Bilirubin, Urine Neg (Neg); Blood, Urine Neg (Neg); Glucose Qualitative, Urine Neg (Neg); Ketones, Urine Neg (Neg); Leukocyte Esterase, Urine Neg (Neg); Nitrite, Urine Neg (Neg); Protein, Urine Neg (Neg); Urobilinogen, Urine NORM (Normal)
[2019-04-13 13:13] LABS: Appearance, Urine Clear (Clear); Color, Urine Yellow (P-Yellow)
--- NOTE | 2019-04-13 14:37 | NUR ---
04/13/2019 Pt gave this medical underwriter permission to be involved in care on 04/14/2019 0600 to 1200
--- NOTE | 2019-04-13 19:42 | NUR ---
PT PLEASANT TODAY. HAS IMPROVED COGNITION, XWIFE AND SON IN ROOM THIS AFT . HE STATES THEY ASSIST IN CARE FOR HIM. IS MUCH MORE AWAKE. DOES VASCILATE SOME. DID EAT AND DRINK TODAY. TOOK ALL PILLS ORAL WITH H2O. BED IN LOW POSITION, CALL LITE IN REACH, BED ALARM ON FOR SAFETY
[2019-04-14 02:29] LABS: Vancomycin, Trough 19.9 ug/mL (5.0-10.0)
--- NOTE | 2019-04-14 02:56 | NUR ---
BLADDER SCAN DONE PER ORDER. 368ML PRESENT.
--- NOTE | 2019-04-14 04:49 | NUR ---
SHIFT SUMMARY- PT. MORE ALERT THIS SHIFT. PLEASANT AND COOPERATIVE WITH CARE. SCHEDULED MEDS GIVEN ONE AT A TIME W/WATER, PT. TOLERTED WELL. PT. VOIDING IN BRIEF SEVERAL TIMES T/O THE NIGHT. BLADDER SCAN PERFORMED PER ORDER. DENIED ANY PAIN T/O THE SHIFT. CALL LIGHT WITHIN REACH, SIDE RAILS UP X3, AND BED ALARM ON. WILL CONT TO MONITOR.
--- NOTE | 2019-04-14 14:29 | NUR ---
Pt alert to self with good affect. Gave permission for me to assist with his care tomorrow 04/15/19.
--- NOTE | 2019-04-14 14:38 | NUR ---
PT CONTINUES TO WAKE. TALKING INTERACTING. STATES FEELS BETTER. READY TO EAT. WANTS TO GO HOME. FEELS CAN EAT AGAIN. CALLED DR GONZALEZ. PALMA D.Veronika IVF. RESTART GLUCOPHAGE DAILY, STOP CBG. START ADA DIET. DONE
[2019-04-14 15:07] LABS: A/G RATIO 0.6 (0.7-1.7); ALBUMIN 1.8 g/dL (2.9-4.4); ALPHA-1-GLOBULIN 0.3 g/dL (0.0-0.4); ALPHA-2-GLOBULIN 0.8 g/dL (0.4-1.0); BETA GLOBULIN 0.6 g/dL (0.7-1.3); GAMMA GLOBULIN 1.2 g/dL (0.4-1.8); GLOBULIN, TOTAL 2.9 g/dL (2.2-3.9); M-SPIKE 0.4 g/dL (Not Observed); PROTEIN, TOTAL, SERUM 4.7 g/dL (6.0-8.5)
--- NOTE | 2019-04-14 18:29 | NUR ---
PT QUITE PLEASANT COOP A/O. DENIES PAIN. PT CONTINUES TO IMPROVE MENTATION. HE IS TALKING MORE OF FAMILY AND JOB. TALKING ABOUT GOING HOME MORE. HE HAS CALLED FAMILY TODAY. STATES WANTS TO GO HOME SOON. FEELS MORE READY. ADMITS TO ME HE HAS DIFFERENCE IN EYES PUPILS BUT NOT SURE HOW LONG. THINKS AT LEAST MONTHS. HAS BEEN MOVED TO FULL ADA DIET AND EATING SLOWLY BUT WELL. STATES ENJOYING HIS CHICKEN AT THIS TIME . BED I LOW POSITION, CALL LITE IN REACH, BED ALARM ON FOR SAFETY
--- NOTE | 2019-04-15 05:12 | NUR ---
SHIFT SUMMARY- PT'S MENTATION CONTS TO IMPROVE. A&O, PLEASANT AND COOPERATIVE WITH CARE. PT. MORE TALKATIVE THIS SHIFT. DENIED ANY PAIN OR DISCOMFORT. BLADDER SCAN PERFORMED PER ORDER, 109ML IN BLADDER. PT. INCONTINENT, ATTENDS IN PLACE. NO ACUTE CHANGES TO CONDITION. CALL LIGHT WITHIN REACH, SIDE RAILS UP X3, AND BED ALARM ON FOR SAFETY. WILL CONT TO MONITOR.
[2019-04-15] MEDS ORDERED: ALLOPURINOL100 M1 PO (14:18)
[2019-04-15 14:20] LABS: BASOPHILS PERCENT AUTO 1 % (0-2); EOSINOPHILS ABSOLUTE AUTO 0.26 K/mm3 (0.00-0.68); EOSINOPHILS PERCENT AUTO 3 % (0-6); Hematocrit 33.9 % (37.0-53.0); Hemoglobin 10.1 g/dL (13.5-17.5); IMMATURE GRAN PERCENT AUTO 1 % (0-1); LYMPHOCYTES ABSOLUTE AUTO 1.26 K/mm3 (0.84-5.20); LYMPHOCYTES PERCENT AUTO 12 % (21-46); MONOCYTES ABSOLUTE AUTO 1.06 K/mm3 (0.16-1.47); MONOCYTES PERCENT AUTO 10 % (4-13); Mean Corpuscular HGB Conc 29.8 g/dL (31.5-36.5); Mean Corpuscular Volume 94 fL (80-100); Mean Platelet Volume 10.6 fL (9.1-12.4); NEUTROPHILS ABSOLUTE AUTO 7.41 K/mm3 (1.96-9.15); NEUTROPHILS PERCENT AUTO 73 % (41-73); Platelet Count 229 K/mm3 (150-400); RDW Coefficient Variation 17.1 % (11.7-14.2); RDW Standard Deviation 58.7 fL (35.1-46.3); Red Blood Cell Count 3.61 M/mm3 (4.30-5.90); White Blood Cell Count 10.19 K/mm3 (4.00-11.30)
[2019-04-15 14:34] LABS: Vancomycin, Trough 19.4 ug/mL (5.0-10.0)
[2019-04-15 14:46] LABS: Alanine Aminotransfer (ALT/SGP <6 U/L (12-78); Albumin, Blood 1.4 g/dL (3.4-5.0); Albumin/Globulin Ratio 0.3 (0.8-1.8); Alk Phos 101 U/L (50-136); Anion Gap 3 mmol/L (6-16); Aspartate Aminotrans (AST/SGOT 7 U/L (12-37); Bilirubin, Total 0.2 mg/dL (0.1-1.0); Blood Urea Nitrogen 7 mg/dL (8-24); Bun/Creatinine Ratio 10.5 (12.0-20.0); CO2, Blood 29 mmol/L (21-32); Calcium, Blood 7.8 mg/dL (8.5-10.1); Chloride, Blood 108 mmol/L (98-108); Creatinine, Blood 0.67 mg/dL (0.60-1.20); Globulin, Blood 4.2 g/dL (2.2-4.0); Glomerular Filtration Rate >60 (60-); Glucose, Blood 124 mg/dL (70-99); Magnesium, Blood 1.1 mg/dL (1.6-2.4); Potassium, Blood 3.6 mmol/L (3.5-5.5); Sodium, Blood 140 mmol/L (136-145); Total Protein, Blood 5.6 g/dL (6.4-8.2)
--- NOTE | 2019-04-15 17:04 | NUR ---
SHIFT SUMMARY PT RESTING QUIETLY THIS AM AT START OF SHIFT. WOKE EASILY FOR CARE. UP TO CHAIR FOR MEALS; 2P MAX ASSIST TO CHAIR FROM BED D/T RBKA. PT IS 1P ASSIST WITH R LEG PROSTHETIC. PT REPORTED THAT HE WAS INDEPENDENT WITH FWW AT HOME, PRIOR TO COMING TO HOSPITAL. PT HAS BEEN INCONTINENT OF URINE. PER SHIFT REPORT, PT POSSIBLE DID HAVE URINE RETENSION. BLADDER SCAN DONE Q6 HRS, SHOW LESS THAN 100cc PVR. PT ADMITTED FOR AMS AFTER HAVING EGD WITH SEDATION. PER REPORT, PT'S FAMILY ALSO GIVING PT OLD PAIN RELIEVERS FOR SOME UNKNOWN REASON. PT DID C/O RT NECK PAIN EARLIER TODAY AND AGREED TO WANTING SOME TYLENOL. DR GONZALEZ IN TO SEE PT AND ORDERED TYLENOL. PT LATER REPORTED IT EFFECTIVE AND NO FURTHER COMPLAINTS. PT ABLE TO WORK WITH PT/OT TODAY. PT TO D/C TO [facility] FOR REHAB BEFORE GOING BACK HOME. FAMILY IN TO SEE PT. IV D/C'D WNL'S. REPORT CALLED TO [facility] AT 16:50. [facility] TO [place] PT AT 1700. PT DRESSED AND READY TO LEAVE AT THIS TIME.
--- NOTE | 2019-04-15 18:46 | NUR ---
1840 DR GONZALEZ CALLED WITH DISCHARGE MEDICATION CHANGES FOR PT D/C'D TO [facility]. CALLED FAKIRBY AT 1842 AND SPOKE WITH ATTENDING RN; MEDICATIONS TO STOP INCLUDED ASA 325MG AND INDOMETHACIN 75MG BID. MEDICATION TO CHANGE INCLUDED OMEPRAZOLE 40MG BID. ATTENDING RN VERBALIZED CHANGES TO BE MADE. NEW D/C MEDICATION LIST FAXED TO [facility] WELL AFTER SPEAKING WITH ATTENDING RN.
== END 2019-04-15 17:26 | DRG 91 ==
LOC: ER 14:53 → MEDS 17:24
PROVIDERS: Emergency Medicine; Internal Medicine; Pharmacist; ADMIT Internal Medicine Gastroenterology
DX: G92 Toxic encephalopathy (principal); E43 Unspecified severe protein-calorie malnutrition; K31.1 Adult hypertrophic pyloric stenosis; N40.0 Benign prostatic hyperplasia without lower urinary tract symptoms; Z89.512 Acquired absence of left leg below knee; Z96.652 Presence of left artificial knee joint; E78.00 Pure hypercholesterolemia, unspecified; I10 Essential (primary) hypertension; M10.9 Gout, unspecified; G43.909 Migraine, unspecified, not intractable, without status migrainosus; J44.9 Chronic obstructive pulmonary disease, unspecified; F31.9 Bipolar disorder, unspecified; Z89.511 Acquired absence of right leg below knee; K26.9 Duodenal ulcer, unspecified as acute or chronic, without hemorrhage or perforation; T40.605A Adverse effect of unspecified narcotics, initial encounter; Y92.9 Unspecified place or not applicable; E11.9 Type 2 diabetes mellitus without complications; Z79.84 Long term (current) use of oral hypoglycemic drugs
CPT/HCPCS: 36415; 71046; 74018; 80048; 80053; 80069; 80202; 81003; 82947; 83605; 83735; 83880; 84145; 84165; 84443; 84484; 85025; 87040; 94760; 97110; 97116; 97162; 97166; 97530; 97535; 99285; A9270; C9113; J0696; J3370; J3475; J3480; J7050

== ENCOUNTER 2019-04-22 23:03 | Emergency (ER) | payer MEDICARE, OTHER ==
[~2019-04-22] VITALS: Ht 167.6 cm; Wt 95.2 kg
[~2019-04-22 23:03] MED LIST changes: +ALLOPURINOL100 M1 PO
[2019-04-22 23:40] LABS: BASOPHILS PERCENT AUTO 1 % (0-2); EOSINOPHILS ABSOLUTE AUTO 0.21 K/mm3 (0.00-0.68); EOSINOPHILS PERCENT AUTO 3 % (0-6); Hematocrit 34.6 % (37.0-53.0); Hemoglobin 10.5 g/dL (13.5-17.5); IMMATURE GRAN ABSOLUTE AUTO 0.14 K/mm3 (0.00-0.10); IMMATURE GRAN PERCENT AUTO 2 % (0-1); LYMPHOCYTES ABSOLUTE AUTO 2.17 K/mm3 (0.84-5.20); LYMPHOCYTES PERCENT AUTO 29 % (21-46); MONOCYTES ABSOLUTE AUTO 0.61 K/mm3 (0.16-1.47); MONOCYTES PERCENT AUTO 8 % (4-13); Mean Corpuscular HGB 28.5 pg (26.0-34.0); Mean Corpuscular HGB Conc 30.3 g/dL (31.5-36.5); Mean Corpuscular Volume 94 fL (80-100); NEUTROPHILS ABSOLUTE AUTO 4.34 K/mm3 (1.96-9.15); NEUTROPHILS PERCENT AUTO 57 % (41-73); RDW Coefficient Variation 15.7 % (11.7-14.2); RDW Standard Deviation 54.4 fL (35.1-46.3); Red Blood Cell Count 3.68 M/mm3 (4.30-5.90); White Blood Cell Count 7.57 K/mm3 (4.00-11.30)
[2019-04-22 23:44] LABS: Mean Platelet Volume 11.4 fL (9.1-12.4); Platelet Count 162 K/mm3 (150-400)
[2019-04-23 00:01] LABS: Troponin I <0.015 ng/mL (0.000-0.040)
[2019-04-23 00:05] LABS: Alanine Aminotransfer (ALT/SGP 16 U/L (12-78); Albumin, Blood 1.9 g/dL (3.4-5.0); Albumin/Globulin Ratio 0.5 (0.8-1.8); Alk Phos 86 U/L (50-136); Anion Gap 9 mmol/L (6-16); Aspartate Aminotrans (AST/SGOT 24 U/L (12-37); Bilirubin, Total <0.1 mg/dL (0.1-1.0); Blood Urea Nitrogen 11 mg/dL (8-24); Bun/Creatinine Ratio 19.4 (12.0-20.0); CO2, Blood 26 mmol/L (21-32); Calcium, Blood 7.8 mg/dL (8.5-10.1); Chloride, Blood 106 mmol/L (98-108); Creatinine, Blood 0.57 mg/dL (0.60-1.20); Globulin, Blood 4.1 g/dL (2.2-4.0); Glomerular Filtration Rate >60 (60-); Glucose, Blood 118 mg/dL (70-99); Potassium, Blood 3.5 mmol/L (3.5-5.5); Sodium, Blood 141 mmol/L (136-145)
[2019-04-23] MEDS ORDERED: GABA300 PO (11:49)
[2019-04-23] MEDS ORDERED: NEURONTIN300 MG PO (11:49)
[2019-04-23] MEDS ORDERED: MONT10T PO (11:51)
[2019-04-24] MEDS ORDERED: ACET325 PO (01:50)
[2019-04-24] MEDS ORDERED: MISO200 PO (01:51)
[2019-04-24] MEDS ORDERED: MAGNESIUM OXID400 M1 PO (01:52)
[2019-04-24] MEDS ORDERED: METOPROLOL SUCC25 MG PO (15:13)
== END 2019-04-23 01:14 | disposition home or self-care (01) ==
LOC: ER 23:03
PROVIDERS: Emergency Medicine
DX: R00.2 Palpitations (principal); G43.909 Migraine, unspecified, not intractable, without status migrainosus; Z88.0 Allergy status to penicillin; Z88.6 Allergy status to analgesic agent; Z88.1 Allergy status to other antibiotic agents; Z79.84 Long term (current) use of oral hypoglycemic drugs; Z79.82 Long term (current) use of aspirin; Z79.899 Other long term (current) drug therapy
CPT/HCPCS: 80053; 84439; 84443; 84484; 85025; 93005; 93010; 99285-25

== ENCOUNTER 2019-04-23 08:44 | Observation (INO) | payer MEDICARE, OTHER ==
[~2019-04-23] VITALS: Ht 167.6 cm; Wt 78.5 kg
[2019-04-23 09:16] LABS: BASOPHILS ABSOLUTE AUTO 0.16 K/mm3 (0.00-0.23); BASOPHILS PERCENT AUTO 1 % (0-2); EOSINOPHILS ABSOLUTE AUTO 0.15 K/mm3 (0.00-0.68); EOSINOPHILS PERCENT AUTO 1 % (0-6); Hematocrit 37.8 % (37.0-53.0); Hemoglobin 11.5 g/dL (13.5-17.5); IMMATURE GRAN PERCENT AUTO 2 % (0-1); LYMPHOCYTES ABSOLUTE AUTO 2.55 K/mm3 (0.84-5.20); LYMPHOCYTES PERCENT AUTO 21 % (21-46); MONOCYTES ABSOLUTE AUTO 0.84 K/mm3 (0.16-1.47); MONOCYTES PERCENT AUTO 7 % (4-13); Mean Corpuscular HGB 28.1 pg (26.0-34.0); Mean Corpuscular HGB Conc 30.4 g/dL (31.5-36.5); Mean Corpuscular Volume 92 fL (80-100); Mean Platelet Volume 10.1 fL (9.1-12.4); NEUTROPHILS ABSOLUTE AUTO 8.19 K/mm3 (1.96-9.15); NEUTROPHILS PERCENT AUTO 68 % (41-73); Platelet Count 200 K/mm3 (150-400); RDW Standard Deviation 54.3 fL (35.1-46.3); Red Blood Cell Count 4.09 M/mm3 (4.30-5.90); White Blood Cell Count 12.09 K/mm3 (4.00-11.30)
[2019-04-23 09:32] LABS: Anion Gap 6 mmol/L (6-16); Blood Urea Nitrogen 11 mg/dL (8-24); Bun/Creatinine Ratio 17.4 (12.0-20.0); CO2, Blood 27 mmol/L (21-32); Calcium, Blood 8.4 mg/dL (8.5-10.1); Chloride, Blood 103 mmol/L (98-108); Creatinine, Blood 0.63 mg/dL (0.60-1.20); Glomerular Filtration Rate >60 (60-); Glucose, Blood 115 mg/dL (70-99); Magnesium, Blood 1.8 mg/dL (1.6-2.4); Potassium, Blood 4.3 mmol/L (3.5-5.5); Sodium, Blood 136 mmol/L (136-145)
[2019-04-23] MEDS ORDERED: GABA300 PO (11:49)
[2019-04-23] MEDS ORDERED: NEURONTIN300 MG PO (11:49)
[2019-04-23] MEDS ORDERED: MONT10T PO (11:51)
--- NOTE | 2019-04-24 01:19 | NUR ---
ASSUMED CARE OF PATIENT AT APPROXIMATELY 1910 FROM NOAH Travis RN. PATIENT ALERT AND ORIENTED X4; REPORTS FEELS WEAKER SINCE NOT WALKING MUCH RECENTLY. PATIENT REPORTS CHRONIC PAIN IN HIS BACK; MEDICATED PER EMAR. PATIENT DENIES NUMBNESS, TINGLING, DIZZINESS OR NAUSEA. NSR ON TELE; OXYGEN SATURATION ABOVE 90% ON ROOM AIR. PIV TO L UPPER CHEST S/L. PATIENT HAS BEEN INCONTINENT OF URINE AT TIMES; SBA TO 1 ASSIST TO THE BATHROOM. PATIENT HAS R BKA; PROSTHETIC IN ROOM. PATIENT CURRENTLY RESTING IN BED; CALL LIGHT IN REACH; BED IN LOWEST POSITION; BED ALARM ON; WILL CONTINUE TO MONITOR AND ASSESS UNTIL END OF SHIFT.
[2019-04-24] MEDS ORDERED: ACET325 PO (01:50)
[2019-04-24] MEDS ORDERED: MISO200 PO (01:51)
[2019-04-24] MEDS ORDERED: MAGNESIUM OXID400 M1 PO (01:52)
--- NOTE | 2019-04-24 06:26 | NUR ---
PATIENT SLEPT ABOUT FOUR HOURS TOTAL; INCONTINENT OF URINE AT TIMES. VSS. REQUESTED PAIN PILL T/O NIGHT FOR BACK PAIN. WILL CONTINUE TO MONITOR AND ASSESS UNTIL END OF SHIFT.
--- NOTE | 2019-04-24 08:00 | NUR ---
pt sitting in chair watching tv, a/ox3, pleasant and cooperative with care, follows commands well, denies complaints, reports his chronic neck pain of 8/10, pain meds not due until 1200, lungs are clear t/o, resp even and unlabord, no cough noted, r/a, hrr, tele in place running sr per monitor, see strip, no edema noted, ppp+12 to left le, right bka, iv to fa site is clear and patent, btx4, abd flat soft, nontender, last bm yesterday, voids without diff, but also has occ incont, attends in place, skin c/w/d, soha, rafael, call light in reach.
--- NOTE | 2019-04-24 11:49 | NUR ---
Advance Directive education conducted. Patient requested information at Admit and I respond to referral. I talked with patient about the content, importance and purpose of the directive, I went through the booklet a section at a time and discussed the filing process. Patient voiced a comprehension of the material and stated that he will fill it out when his daughter has time to sit sown with him.
--- NOTE | 2019-04-24 14:55 | NUR ---
pt is being discharged to home, wants a pain pill, checked b/p he is 85/58, called Dr. Collado, recieved an order for saline bolus of 250mls, if it doesn't come up with that, may repeat, will monitor. he is in a chair, denies any complaints of symptoms, family here to take him home. call light in reach.
[2019-04-24] MEDS ORDERED: METOPROLOL SUCC25 MG PO (15:13)
--- NOTE | 2019-04-24 18:09 | NUR ---
gave a total of 500ml bolus, sbp never went over 100, going between the 80's and 90's, spoke with Dr. Collado several times, will cancel discharge for now, and keep him overnight, will hold tonights dose of metoprolol, he will stop the lisinopril, he is also going to cut his metoprolol dose to 12.5 rather than 25 bid. explained this to pt, he is agreeable, and spoke with his son. call light in reach.
--- NOTE | 2019-04-25 06:40 | NUR ---
SHIFT SUMMARY PT ALERT; START OF SHIFT WAS QUITE SLEEPY AND LETHARGIC; WAS ABLE TO AROUSE FOR PO MEDS; BECAME MORE AWAKE AND CONVERSIVE LATER IN SHIFT; VSS; BP IMPROVED T/O SHIFT; NO LONGER HYPOTENSIVE; DENIES CHEST PAIN; O2 SATS >93 ON RA; ATTENDS IN PLACE PT IS INCONTINENT AT TIMES; INDEPENDENT W/ PROSTHETIC IN PLACE; DENIES NEEDS AT THIS TIME; CALL LIGHT IN REACH; BED IN LOWEST POSITION; WILL MONITOR CLOSELY UNTIL HAND OFF TO DAY SHIFT RN.
== END 2019-04-25 09:38 | disposition home or self-care (01) ==
LOC: ER 08:44 → PCU 08:45 → ERHOLD 08:45 → PCU 13:52
PROVIDERS: Emergency Medicine; ADMIT Hospitalist
DX: I47.1 Supraventricular tachycardia (principal); I95.9 Hypotension, unspecified; R41.82 Altered mental status, unspecified; N40.0 Benign prostatic hyperplasia without lower urinary tract symptoms; E11.9 Type 2 diabetes mellitus without complications; R32 Unspecified urinary incontinence; E78.5 Hyperlipidemia, unspecified; G89.29 Other chronic pain; M54.5 Low back pain; M54.2 Cervicalgia; F31.9 Bipolar disorder, unspecified; Z79.84 Long term (current) use of oral hypoglycemic drugs; Z79.891 Long term (current) use of opiate analgesic; Z79.899 Other long term (current) drug therapy; Z88.0 Allergy status to penicillin; Z88.1 Allergy status to other antibiotic agents; Z88.5 Allergy status to narcotic agent; Z89.512 Acquired absence of left leg below knee; Z90.49 Acquired absence of other specified parts of digestive tract; Z98.1 Arthrodesis status
CPT/HCPCS: 36415; 71045; 80048; 82947; 83735; 85025; 93005; 93010; 96361; 96372; 96374; 96376; 97116; 97161; 97165; 97530; 97535; 99285-25; A9270-GY; G0378; J0153; J1650; J7030

== ENCOUNTER → 2019-05-06 | Outpatient (CLI) | payer MEDICARE, OTHER ==
[~2019-05-06] MED LIST changes: +K-Dur 20 meq T20 MEQ PO; +MAGNESIUM OXID400 M1 PO; +METOPROLOL SUCC25 MG PO; +NEURONTIN300 MG PO
[2019-05-06 16:27] LABS: BASOPHILS ABSOLUTE AUTO 0.03 K/mm3 (0.00-0.23); BASOPHILS PERCENT AUTO 0 % (0-2); EOSINOPHILS ABSOLUTE AUTO 0.01 K/mm3 (0.00-0.68); EOSINOPHILS PERCENT AUTO 0 % (0-6); Hematocrit 44.3 % (37.0-53.0); Hemoglobin 14.9 g/dL (13.5-17.5); IMMATURE GRAN ABSOLUTE AUTO 0.09 K/mm3 (0.00-0.10); IMMATURE GRAN PERCENT AUTO 1 % (0-1); LYMPHOCYTES ABSOLUTE AUTO 1.06 K/mm3 (0.84-5.20); LYMPHOCYTES PERCENT AUTO 9 % (21-46); MONOCYTES PERCENT AUTO 6 % (4-13); Mean Corpuscular HGB 29.2 pg (26.0-34.0); Mean Corpuscular HGB Conc 33.6 g/dL (31.5-36.5); Mean Platelet Volume 10.8 fL (9.1-12.4); NEUTROPHILS ABSOLUTE AUTO 10.12 K/mm3 (1.96-9.15); NEUTROPHILS PERCENT AUTO 84 % (41-73); Platelet Count 164 K/mm3 (150-400); RDW Standard Deviation 47.8 fL (35.1-46.3); White Blood Cell Count 12.01 K/mm3 (4.00-11.30)
[2019-05-06 16:31] LABS: Mean Corpuscular Volume 87 fL (80-100)
[2019-05-06 16:37] LABS: Alanine Aminotransfer (ALT/SGP 10 U/L (12-78); Albumin, Blood 3.3 g/dL (3.4-5.0); Albumin/Globulin Ratio 0.8 (0.8-1.8); Alk Phos 119 U/L (40-126); Anion Gap 16 mmol/L (6-16); Aspartate Aminotrans (AST/SGOT 17 U/L (12-37); Bilirubin, Total 0.5 mg/dL (0.1-1.0); Blood Urea Nitrogen 4 mg/dL (8-24); Bun/Creatinine Ratio 4.9 (12.0-20.0); CO2, Blood 22 mmol/L (21-32); Calcium, Blood 9.1 mg/dL (8.5-10.1); Chloride, Blood 93 mmol/L (98-108); Creatinine, Blood 0.81 mg/dL (0.60-1.20); Globulin, Blood 4.4 g/dL (2.2-4.0); Glomerular Filtration Rate >60 (60-); Glucose, Blood 157 mg/dL (70-99); Potassium, Blood 2.7 mmol/L (3.5-5.5); Sodium, Blood 131 mmol/L (136-145); Total Protein, Blood 7.7 g/dL (6.4-8.2)
== END ==
LOC: LAB SHORT 16:08 → LAB EV 16:08
PROVIDERS: Physician Assistant Medical
DX: R11.2 Nausea with vomiting, unspecified (principal)
CPT/HCPCS: 80053; 83690; 85025

== ENCOUNTER 2019-05-07 04:36 | Emergency (ER) | payer MEDICARE, OTHER ==
[~2019-05-07] VITALS: Ht 167.6 cm; Wt 81.7 kg
[~2019-05-07 04:36] MED LIST changes: -K-Dur 20 meq T20 MEQ PO
[2019-05-07 05:13] LABS: BASOPHILS ABSOLUTE AUTO 0.02 K/mm3 (0.00-0.23); BASOPHILS PERCENT AUTO 0 % (0-2); EOSINOPHILS ABSOLUTE AUTO 0.04 K/mm3 (0.00-0.68); EOSINOPHILS PERCENT AUTO 0 % (0-6); Hematocrit 40.2 % (37.0-53.0); Hemoglobin 13.3 g/dL (13.5-17.5); IMMATURE GRAN ABSOLUTE AUTO 0.07 K/mm3 (0.00-0.10); IMMATURE GRAN PERCENT AUTO 1 % (0-1); LYMPHOCYTES ABSOLUTE AUTO 1.41 K/mm3 (0.84-5.20); LYMPHOCYTES PERCENT AUTO 11 % (21-46); MONOCYTES ABSOLUTE AUTO 0.72 K/mm3 (0.16-1.47); MONOCYTES PERCENT AUTO 6 % (4-13); Mean Corpuscular HGB Conc 33.1 g/dL (31.5-36.5); Mean Corpuscular Volume 88 fL (80-100); Mean Platelet Volume 9.4 fL (9.1-12.4); NEUTROPHILS ABSOLUTE AUTO 10.12 K/mm3 (1.96-9.15); NEUTROPHILS PERCENT AUTO 82 % (41-73); Platelet Count 283 K/mm3 (150-400); RDW Coefficient Variation 14.9 % (11.7-14.2); RDW Standard Deviation 47.9 fL (35.1-46.3); Red Blood Cell Count 4.58 M/mm3 (4.30-5.90); White Blood Cell Count 12.38 K/mm3 (4.00-11.30)
[2019-05-07 05:30] LABS: Alanine Aminotransfer (ALT/SGP 10 U/L (12-78); Albumin, Blood 2.9 g/dL (3.4-5.0); Albumin/Globulin Ratio 0.7 (0.8-1.8); Alk Phos 104 U/L (50-136); Anion Gap 10 mmol/L (6-16); Aspartate Aminotrans (AST/SGOT 22 U/L (12-37); Bilirubin, Total 0.6 mg/dL (0.1-1.0); Blood Urea Nitrogen 4 mg/dL (8-24); Bun/Creatinine Ratio 7.2 (12.0-20.0); CO2, Blood 27 mmol/L (21-32); Calcium, Blood 8.3 mg/dL (8.5-10.1); Chloride, Blood 89 mmol/L (98-108); Creatinine, Blood 0.56 mg/dL (0.60-1.20); Globulin, Blood 3.9 g/dL (2.2-4.0); Glomerular Filtration Rate >60 (60-); Glucose, Blood 127 mg/dL (70-99); Potassium, Blood 2.5 mmol/L (3.5-5.5); Sodium, Blood 126 mmol/L (136-145); Total Protein, Blood 6.8 g/dL (6.4-8.2)
[2019-05-07] MEDS ORDERED: K-Dur 20 meq T20 MEQ PO (06:28)
== END 2019-05-07 07:35 | disposition home or self-care (01) ==
LOC: ER 04:36
PROVIDERS: Emergency Medicine
DX: E87.6 Hypokalemia (principal); R10.11 Right upper quadrant pain; G43.909 Migraine, unspecified, not intractable, without status migrainosus; Z88.0 Allergy status to penicillin; Z79.899 Other long term (current) drug therapy
CPT/HCPCS: 80053; 83690; 85025; 93005; 93010; 96361; 96374; 96375; 99284-25; J2405; J3010; J7030

== ENCOUNTER 2019-05-21 10:35 | Emergency (ER) | payer MEDICARE, OTHER ==
[~2019-05-21] VITALS: Ht 172.7 cm; Wt 97.5 kg
[~2019-05-21 10:35] MED LIST changes: +K-Dur 20 meq T20 MEQ PO
[2019-05-21 11:10] LABS: BASOPHILS ABSOLUTE AUTO 0.03 K/mm3 (0.00-0.23); BASOPHILS PERCENT AUTO 1 % (0-2); EOSINOPHILS ABSOLUTE AUTO 0.03 K/mm3 (0.00-0.68); EOSINOPHILS PERCENT AUTO 1 % (0-6); Hematocrit 39.9 % (37.0-53.0); Hemoglobin 12.7 g/dL (13.5-17.5); IMMATURE GRAN ABSOLUTE AUTO 0.07 K/mm3 (0.00-0.10); IMMATURE GRAN PERCENT AUTO 2 % (0-1); LYMPHOCYTES ABSOLUTE AUTO 0.82 K/mm3 (0.84-5.20); LYMPHOCYTES PERCENT AUTO 19 % (21-46); MONOCYTES ABSOLUTE AUTO 0.31 K/mm3 (0.16-1.47); MONOCYTES PERCENT AUTO 7 % (4-13); Mean Corpuscular HGB 28.6 pg (26.0-34.0); Mean Corpuscular HGB Conc 31.8 g/dL (31.5-36.5); Mean Corpuscular Volume 90 fL (80-100); Mean Platelet Volume 9.1 fL (9.1-12.4); NEUTROPHILS ABSOLUTE AUTO 2.96 K/mm3 (1.96-9.15); NEUTROPHILS PERCENT AUTO 70 % (41-73); Platelet Count 230 K/mm3 (150-400); RDW Coefficient Variation 15.2 % (11.7-14.2); RDW Standard Deviation 50.3 fL (35.1-46.3); Red Blood Cell Count 4.44 M/mm3 (4.30-5.90); White Blood Cell Count 4.22 K/mm3 (4.00-11.30)
[2019-05-21 11:15] LABS: Alanine Aminotransfer (ALT/SGP 8 U/L (12-78); Albumin, Blood 1.9 g/dL (3.4-5.0); Albumin/Globulin Ratio 0.5 (0.8-1.8); Alk Phos 114 U/L (50-136); Anion Gap 8 mmol/L (6-16); Aspartate Aminotrans (AST/SGOT 8 U/L (12-37); Bilirubin, Total 0.3 mg/dL (0.1-1.0); Blood Urea Nitrogen 8 mg/dL (8-24); Bun/Creatinine Ratio 12.6 (12.0-20.0); CO2, Blood 24 mmol/L (21-32); Calcium, Blood 8.3 mg/dL (8.5-10.1); Chloride, Blood 107 mmol/L (98-108); Creatinine, Blood 0.64 mg/dL (0.60-1.20); Glomerular Filtration Rate >60 (60-); Glucose, Blood 110 mg/dL (70-99); Potassium, Blood 3.4 mmol/L (3.5-5.5); Sodium, Blood 139 mmol/L (136-145); Total Protein, Blood 5.9 g/dL (6.4-8.2)
[2019-05-21 11:59] LABS: Source, Urine Catheter
[2019-05-21 12:02] LABS: Bilirubin, Urine Neg (Neg); Blood, Urine 2+ (Neg); Glucose Qualitative, Urine Neg (Neg); Ketones, Urine 3+ (Neg); Leukocyte Esterase, Urine Neg (Neg); Nitrite, Urine Neg (Neg); Protein, Urine Neg (Neg); Specific Gravity, Urine 1.015 (1.003-1.022); Urobilinogen, Urine NORM (Normal)
[2019-05-21 12:07] LABS: Appearance, Urine Clear (Clear); Color, Urine Yellow (P-Yellow)
[2019-05-21 12:08] LABS: Mucus Mod (0-Heavy); White Blood Cells, Urine 0-2 /hpf (0-5)
[2019-05-21 12:09] LABS: Bacteria Few /hpf; Squamous Epithelial Cells Few /hpf (Few)
[2019-05-22] MEDS ORDERED: INDO50S PO (10:48)
[2019-05-22] MEDS ORDERED: Robaxin750 MG PO (10:49)
[2019-05-22] MEDS ORDERED: Lisinopril2.5 MG PO (10:49)
[2019-05-22] MEDS ORDERED: OLAN5 PO (13:47)
[2019-05-22] MEDS ORDERED: ONDA4ODT SL (13:47)
== END 2019-05-21 13:10 | disposition home or self-care (01) ==
LOC: ER 10:35
PROVIDERS: Emergency Medicine
DX: R10.31 Right lower quadrant pain (principal); F31.9 Bipolar disorder, unspecified; I10 Essential (primary) hypertension; E78.00 Pure hypercholesterolemia, unspecified; M10.9 Gout, unspecified; N40.0 Benign prostatic hyperplasia without lower urinary tract symptoms; E11.9 Type 2 diabetes mellitus without complications; Z79.84 Long term (current) use of oral hypoglycemic drugs; Z88.8 Allergy status to other drugs, medicaments and biological substances; Z88.6 Allergy status to analgesic agent; Z88.1 Allergy status to other antibiotic agents; Z79.899 Other long term (current) drug therapy
CPT/HCPCS: 36415; 74176; 80053; 81001; 83690; 85025; 96374; 99284-25; J2405

== ENCOUNTER 2019-05-22 10:24 | Emergency (ER) | payer MEDICARE, OTHER ==
[~2019-05-22] VITALS: Ht 167.6 cm; Wt 68.0 kg
[2019-05-22] MEDS ORDERED: INDO50S PO (10:48)
[2019-05-22] MEDS ORDERED: Lisinopril2.5 MG PO (10:49)
[2019-05-22] MEDS ORDERED: Robaxin750 MG PO (10:49)
[2019-05-22 11:02] LABS: BASOPHILS ABSOLUTE AUTO 0.05 K/mm3 (0.00-0.23); BASOPHILS PERCENT AUTO 1 % (0-2); EOSINOPHILS ABSOLUTE AUTO 0.02 K/mm3 (0.00-0.68); EOSINOPHILS PERCENT AUTO 0 % (0-6); Hematocrit 40.3 % (37.0-53.0); IMMATURE GRAN ABSOLUTE AUTO 0.19 K/mm3 (0.00-0.10); IMMATURE GRAN PERCENT AUTO 3 % (0-1); LYMPHOCYTES ABSOLUTE AUTO 1.01 K/mm3 (0.84-5.20); LYMPHOCYTES PERCENT AUTO 17 % (21-46); MONOCYTES ABSOLUTE AUTO 0.32 K/mm3 (0.16-1.47); MONOCYTES PERCENT AUTO 5 % (4-13); Mean Corpuscular HGB 28.8 pg (26.0-34.0); Mean Corpuscular HGB Conc 32.3 g/dL (31.5-36.5); Mean Corpuscular Volume 89 fL (80-100); Mean Platelet Volume 9.3 fL (9.1-12.4); NEUTROPHILS ABSOLUTE AUTO 4.44 K/mm3 (1.96-9.15); NEUTROPHILS PERCENT AUTO 74 % (41-73); Platelet Count 276 K/mm3 (150-400); RDW Coefficient Variation 15.5 % (11.7-14.2); RDW Standard Deviation 51.7 fL (35.1-46.3); Red Blood Cell Count 4.51 M/mm3 (4.30-5.90); White Blood Cell Count 6.03 K/mm3 (4.00-11.30)
[2019-05-22 11:27] LABS: Alanine Aminotransfer (ALT/SGP <6 U/L (12-78); Albumin/Globulin Ratio 0.5 (0.8-1.8); Alk Phos 126 U/L (50-136); Anion Gap 10 mmol/L (6-16); Aspartate Aminotrans (AST/SGOT 5 U/L (12-37); Bilirubin, Total 0.5 mg/dL (0.1-1.0); Blood Urea Nitrogen 9 mg/dL (8-24); Bun/Creatinine Ratio 15.7 (12.0-20.0); CO2, Blood 24 mmol/L (21-32); Calcium, Blood 8.3 mg/dL (8.5-10.1); Chloride, Blood 105 mmol/L (98-108); Creatinine, Blood 0.58 mg/dL (0.60-1.20); Globulin, Blood 4.3 g/dL (2.2-4.0); Glomerular Filtration Rate >60 (60-); Glucose, Blood 84 mg/dL (70-99); Magnesium, Blood 1.1 mg/dL (1.6-2.4); Potassium, Blood 3.4 mmol/L (3.5-5.5); Sodium, Blood 139 mmol/L (136-145); Total Protein, Blood 6.3 g/dL (6.4-8.2)
[2019-05-22] MEDS ORDERED: OLAN5 PO (13:47)
[2019-05-22] MEDS ORDERED: ONDA4ODT SL (13:47)
== END 2019-05-22 13:56 | disposition home or self-care (01) ==
LOC: ER 10:24
PROVIDERS: Emergency Medicine
DX: K52.9 Noninfective gastroenteritis and colitis, unspecified (principal); E83.42 Hypomagnesemia; E88.09 Other disorders of plasma-protein metabolism, not elsewhere classified; E11.9 Type 2 diabetes mellitus without complications; F31.9 Bipolar disorder, unspecified; M54.9 Dorsalgia, unspecified; M54.2 Cervicalgia; G89.29 Other chronic pain; Z88.0 Allergy status to penicillin; Z88.1 Allergy status to other antibiotic agents; Z88.8 Allergy status to other drugs, medicaments and biological substances; Z79.84 Long term (current) use of oral hypoglycemic drugs; Z79.899 Other long term (current) drug therapy
CPT/HCPCS: 80053; 83690; 83735; 84443; 84484; 85025; 93005; 93010; 96365; 96372-59; 99284-25; J3475

== ENCOUNTER 2019-07-10 16:58 | Emergency (ER) | payer MEDICARE, OTHER ==
[~2019-07-10] VITALS: Ht 172.7 cm; Wt 78.5 kg
[~2019-07-10 16:58] MED LIST changes: +INDO50S PO; +ONDA4ODT SL; +Robaxin750 MG PO
[2019-07-10 17:28] LABS: BASOPHILS ABSOLUTE AUTO 0.16 K/mm3 (0.00-0.23); BASOPHILS PERCENT AUTO 2 % (0-2); EOSINOPHILS ABSOLUTE AUTO 0.03 K/mm3 (0.00-0.68); EOSINOPHILS PERCENT AUTO 0 % (0-6); Hematocrit 41.3 % (37.0-53.0); IMMATURE GRAN PERCENT AUTO 2 % (0-1); LYMPHOCYTES ABSOLUTE AUTO 1.46 K/mm3 (0.84-5.20); LYMPHOCYTES PERCENT AUTO 14 % (21-46); MONOCYTES ABSOLUTE AUTO 0.58 K/mm3 (0.16-1.47); MONOCYTES PERCENT AUTO 6 % (4-13); Mean Corpuscular HGB 29.1 pg (26.0-34.0); Mean Corpuscular HGB Conc 31.5 g/dL (31.5-36.5); Mean Corpuscular Volume 92 fL (80-100); Mean Platelet Volume 9.3 fL (9.1-12.4); NEUTROPHILS ABSOLUTE AUTO 7.69 K/mm3 (1.96-9.15); NEUTROPHILS PERCENT AUTO 76 % (41-73); Platelet Count 481 K/mm3 (150-400); RDW Coefficient Variation 17.9 % (11.7-14.2); RDW Standard Deviation 61.3 fL (35.1-46.3); Red Blood Cell Count 4.47 M/mm3 (4.30-5.90); White Blood Cell Count 10.12 K/mm3 (4.00-11.30)
[2019-07-10 17:30] LABS: Calcium, Ionized (POC) 1.09 mmol/L (1.10-1.46); Chloride (POC) 102 mmol/L (98-108); Creatinine (POC) 0.7 mg/dL (0.8-1.3); Glucose (ISTAT POC) 194 mg/dL (70-99); Hemoglobin (POC) 14.3 g/dL (13.5-17.5); Potassium (POC) 3.3 mmol/L (3.5-5.5); Sodium (POC) 137 mmol/L (135-148); Total CO2 (POC) 21 mmol/L (21-32)
[2019-07-10 17:52] LABS: Alanine Aminotransfer (ALT/SGP 10 U/L (12-78); Albumin, Blood 2.6 g/dL (3.4-5.0); Albumin/Globulin Ratio 0.6 (0.8-1.8); Alk Phos 136 U/L (50-136); Anion Gap 10 mmol/L (6-16); Aspartate Aminotrans (AST/SGOT 15 U/L (12-37); Bilirubin, Total 0.2 mg/dL (0.1-1.0); Blood Urea Nitrogen 5 mg/dL (8-24); Bun/Creatinine Ratio 6.6 (12.0-20.0); CO2, Blood 23 mmol/L (21-32); Chloride, Blood 105 mmol/L (98-108); Creatinine, Blood 0.76 mg/dL (0.60-1.20); Globulin, Blood 4.4 g/dL (2.2-4.0); Glomerular Filtration Rate >60 (60-); Glucose, Blood 187 mg/dL (70-99); Potassium, Blood 3.4 mmol/L (3.5-5.5); Sodium, Blood 138 mmol/L (136-145); Troponin I 0.047 ng/mL (0.000-0.040)
== END 2019-07-10 19:50 | disposition home or self-care (01) ==
LOC: ER 16:58
PROVIDERS: Emergency Medicine
DX: I47.1 Supraventricular tachycardia (principal); I95.9 Hypotension, unspecified; E87.6 Hypokalemia; I10 Essential (primary) hypertension; E11.9 Type 2 diabetes mellitus without complications; N40.0 Benign prostatic hyperplasia without lower urinary tract symptoms; G43.909 Migraine, unspecified, not intractable, without status migrainosus; F31.9 Bipolar disorder, unspecified; Z88.0 Allergy status to penicillin; Z88.8 Allergy status to other drugs, medicaments and biological substances; Z88.1 Allergy status to other antibiotic agents; Z79.899 Other long term (current) drug therapy
CPT/HCPCS: 71045; 80047; 80053; 83735; 83880; 84484; 85014; 85025; 93005; 93010; 96361; 96374; 99285-25; A9270; J0153; J2405; J7030

== ENCOUNTER 2019-07-11 23:28 | Inpatient (IN) | payer OTHER, MEDICARE ==
[~2019-07-11] VITALS: Ht 172.7 cm; Wt 81.6 kg
[2019-07-12 00:06] LABS: BASOPHILS ABSOLUTE AUTO 0.11 K/mm3 (0.00-0.23); BASOPHILS PERCENT AUTO 1 % (0-2); EOSINOPHILS ABSOLUTE AUTO 0.07 K/mm3 (0.00-0.68); EOSINOPHILS PERCENT AUTO 0 % (0-6); Hematocrit 37.6 % (37.0-53.0); Hemoglobin 11.8 g/dL (13.5-17.5); IMMATURE GRAN ABSOLUTE AUTO 1.34 K/mm3 (0.00-0.10); IMMATURE GRAN PERCENT AUTO 7 % (0-1); LYMPHOCYTES ABSOLUTE AUTO 2.68 K/mm3 (0.84-5.20); LYMPHOCYTES PERCENT AUTO 13 % (21-46); MONOCYTES ABSOLUTE AUTO 1.35 K/mm3 (0.16-1.47); MONOCYTES PERCENT AUTO 7 % (4-13); Mean Corpuscular HGB 29.5 pg (26.0-34.0); Mean Corpuscular HGB Conc 31.4 g/dL (31.5-36.5); Mean Corpuscular Volume 94 fL (80-100); Mean Platelet Volume 9.3 fL (9.1-12.4); NEUTROPHILS ABSOLUTE AUTO 14.92 K/mm3 (1.96-9.15); NEUTROPHILS PERCENT AUTO 73 % (41-73); NRBC ABSOLUTE 0.02 K/mm3 (0.00-0.02); NRBC Auto 0.1 /100 WBC (0.0-0.2); Platelet Count 425 K/mm3 (150-400); RDW Standard Deviation 58.7 fL (35.1-46.3); White Blood Cell Count 20.47 K/mm3 (4.00-11.30)
[2019-07-12 00:17] LABS: BAND PERCENT MAN 3 % (0-8); BASOPHILS PERCENT MAN 0 % (0-2); EOSINOPHILS PERCENT MAN 0 % (0-6); Ethanol (Alcohol), Blood, Med <3 mg/dL; LYMPHOCYTES ABSOLUTE MAN 2.04 K/mm3 (0.84-5.20); LYMPHOCYTES PERCENT MAN 10 % (21-46); METAMYELOCYTE ABSOLUTE MAN 0.61 K/mm3 (0.00-0.00); METAMYELOCYTE PERCENT MAN 3 % (0-0); MONOCYTES ABSOLUTE MAN 1.02 K/mm3 (0.16-1.47); MONOCYTES PERCENT MAN 5 % (4-13); NEUTROPHILS ABSOLUTE MAN 16.78 K/mm3 (1.96-9.15); SEG NEUTROPHILS PERCENT MAN 79 % (41-73); Salicylate <1.7 mg/dL (2.8-20.0); TOTAL CELLS COUNTED 100
[2019-07-12 00:18] LABS: Alanine Aminotransfer (ALT/SGP 15 U/L (12-78); Albumin, Blood 2.4 g/dL (3.4-5.0); Albumin/Globulin Ratio 0.6 (0.8-1.8); Alk Phos 149 U/L (50-136); Anion Gap 20 mmol/L (6-16); Aspartate Aminotrans (AST/SGOT 51 U/L (12-37); Bilirubin, Total 0.4 mg/dL (0.1-1.0); Blood Urea Nitrogen 8 mg/dL (8-24); Bun/Creatinine Ratio 13.9 (12.0-20.0); CO2, Blood 18 mmol/L (21-32); Calcium, Blood 8.2 mg/dL (8.5-10.1); Chloride, Blood 89 mmol/L (98-108); Creatinine, Blood 0.58 mg/dL (0.60-1.20); Glomerular Filtration Rate >60 (60-); Glucose, Blood 270 mg/dL (70-99); Potassium, Blood 4.5 mmol/L (3.5-5.5); Total Protein, Blood 6.4 g/dL (6.4-8.2)
[2019-07-12 00:20] LABS: Sodium, Blood 127 mmol/L (136-145)
[2019-07-12 00:21] LABS: Acetaminophen, Random <2.0 ug/mL (10.0-30.0)
[2019-07-12 00:41] LABS: International Normalized Ratio 0.96; Prothrombin Time Results 10.3 Sec (9.7-11.5)
[2019-07-12 00:45] LABS: Source, Urine Catheter
[2019-07-12 00:48] LABS: Appearance, Urine Hazy (Clear); Bilirubin, Urine Neg (Neg); Blood, Urine 4+ (Neg); Color, Urine Yellow (P-Yellow); Glucose Qualitative, Urine 4+ (Neg); Ketones, Urine 2+ (Neg); Leukocyte Esterase, Urine Neg (Neg); Nitrite, Urine Neg (Neg); Protein, Urine 4+ (Neg); Specific Gravity, Urine 1.025 (1.003-1.022); Urobilinogen, Urine NORM (Normal)
[2019-07-12 00:53] LABS: White Blood Cells, Urine 25-50 /hpf (0-5)
[2019-07-12 00:54] LABS: Amorphous Light (0-Heavy); Bacteria Mod /hpf; Hyaline Casts 0-2 /lpf (0-2); Red Blood Cells, Urine 25-50 /hpf (0-2); Squamous Epithelial Cells Few /hpf (Few)
[2019-07-12 00:57] LABS: U Amphetamine Screen Not Detected; U Barbituate Screen Not Detected; U Benzodiazapine Screen Not Detected; U Buprenorphine Screen Not Detected; U Cannabinoids Screen Not Detected; U Cocaine Screen Not Detected; U Methadone Screen Not Detected; U Methamphetamine Screen Not Detected; U Opiates Screen Not Detected; U Oxycodone Screen Not Detected; U Phencyclidine Screen Not Detected; U Propoxyphene Screen Not Detected
[2019-07-12 01:04] LABS: Troponin I 0.395 ng/mL (0.000-0.040)
[2019-07-12 01:56] LABS: PCO2 Arterial 31.6 mmHg (35-45); PO2 Arterial 110 mmHg (80-100); pH Blood Arterial 7.48 (7.35-7.45)
--- NOTE | 2019-07-12 03:00 | NUR ---
PT ARRIVED TO ICU 4 FROM ER. PT IS MAX TRANSFER TO BED WITH SLIDER SHEET. INTUBATED AND SEDATED WITH PROPOFOL AND VERSED, SEE FLOWSHEET. HEPARIN GTT RUNNING AT 13UNITS/KG/HR PER PHARMACY DOSING. PT WILL TWITCH AT TIMES, NOT RHYTHMIC AND IS SPORATIC. WILL MOVE AWAY FROM TOUCH TO RLE STUMP. PT HAS R BKA. PT'S PUPILS ARE UNEQUAL AND L SIDE IS IRREGULAR SHAPED. THE L PUPIL DOES REACT TO LIGHT BUT IS SLUGGISH. R PUPIL IS PINPOINT AND NON REACTIVE.
[2019-07-12 03:50] LABS: BASOPHILS ABSOLUTE AUTO 0.07 K/mm3 (0.00-0.23); BASOPHILS PERCENT AUTO 0 % (0-2); EOSINOPHILS PERCENT AUTO 0 % (0-6); Hematocrit 32.4 % (37.0-53.0); Hemoglobin 10.9 g/dL (13.5-17.5); IMMATURE GRAN ABSOLUTE AUTO 0.45 K/mm3 (0.00-0.10); IMMATURE GRAN PERCENT AUTO 2 % (0-1); LYMPHOCYTES ABSOLUTE AUTO 0.99 K/mm3 (0.84-5.20); LYMPHOCYTES PERCENT AUTO 5 % (21-46); MONOCYTES ABSOLUTE AUTO 1.88 K/mm3 (0.16-1.47); MONOCYTES PERCENT AUTO 9 % (4-13); Mean Corpuscular HGB 30.2 pg (26.0-34.0); Mean Corpuscular HGB Conc 33.6 g/dL (31.5-36.5); Mean Platelet Volume 8.8 fL (9.1-12.4); NEUTROPHILS ABSOLUTE AUTO 18.36 K/mm3 (1.96-9.15); NEUTROPHILS PERCENT AUTO 84 % (41-73); Platelet Count 344 K/mm3 (150-400); RDW Coefficient Variation 17.2 % (11.7-14.2); RDW Standard Deviation 56.9 fL (35.1-46.3); Red Blood Cell Count 3.61 M/mm3 (4.30-5.90); White Blood Cell Count 21.75 K/mm3 (4.00-11.30)
[2019-07-12 03:54] LABS: Mean Corpuscular Volume 90 fL (80-100)
[2019-07-12 04:08] LABS: Alanine Aminotransfer (ALT/SGP 14 U/L (12-78); Albumin, Blood 2.2 g/dL (3.4-5.0); Albumin/Globulin Ratio 0.6 (0.8-1.8); Alk Phos 134 U/L (50-136); Anion Gap 11 mmol/L (6-16); Aspartate Aminotrans (AST/SGOT 34 U/L (12-37); Bilirubin, Total 0.3 mg/dL (0.1-1.0); Blood Urea Nitrogen 9 mg/dL (8-24); Bun/Creatinine Ratio 16.6 (12.0-20.0); CO2, Blood 25 mmol/L (21-32); Calcium, Blood 7.7 mg/dL (8.5-10.1); Chloride, Blood 94 mmol/L (98-108); Creatinine, Blood 0.54 mg/dL (0.60-1.20); Globulin, Blood 3.7 g/dL (2.2-4.0); Glomerular Filtration Rate >60 (60-); Glucose, Blood 167 mg/dL (70-99); Potassium, Blood 2.6 mmol/L (3.5-5.5); Sodium, Blood 130 mmol/L (136-145); Total Protein, Blood 5.9 g/dL (6.4-8.2)
[2019-07-12 04:11] LABS: Magnesium, Blood 1.1 mg/dL (1.6-2.4)
--- NOTE | 2019-07-12 04:47 | NUR ---
CALLED DR. GRANDA ABOUT CRITICAL LOW MAG. ALSO INFORMED HER OF POTASSIUM LEVEL OF 2.6. NEW ORDERS FOR MAG AND KCL IVPB.
--- NOTE | 2019-07-12 06:46 | NUR ---
SEIZURE UPON ENTERING THE ROOM, RN HEARD PT'S HAND HIT THE BEDRAIL. THEN PT'S WHOLE BODY LOOKED LIKE IT WAS VIBRATING AND HE WAS CHEWING ON THE ETT. EYE'S ARE ROLLED BACK IN HEAD AND HAVE NYSTAGMUS MOVEMENT THAT WAS NOT PRESENT ON ADMIT. GAVE 2MG ATIVAN IV. CALLED DR. GRANDA AND LET HER KNOW. INCREASED PROPOFOL TO 40MCG/KG/MIN. AFTER ATIVAN PT IS NO LONGER VIBRATING. PUPILS REMAIN UNEQUAL WITH L LARGER THAN R. L PUPIL IS IRREGULAR SHAPE. BOTH PUPILS ARE SLUGGISH IN REACTION TO LIGHT. UPWARD GAZE AND NYSTAGMUS STILL PRESENT. WILL BE REPORTING OFF TO DAY RN.
--- NOTE | 2019-07-12 08:58 | NUR ---
ASSUMED CARE REPORT RECEIVED FROM NIRMAL ALVAREZ. PT RESTING IN BED, VENTED, SEDATED, RESTING WITH EYES CLOSED. PT RIDING THE VENT AT RATE OF 16. PT PERIODICALLY HAS A QUICK MUSCLE SPASM WHERE THE SHOULDERS RAISE SLIGHTLY AND ARM MOVES THEN RELAXES, BUT THEN RELAXES. WHEN PROVIDING CARE PT'S BODY TENSES. PT TRIED TO CLAMP MOUTH SHUT FOR ORAL CARE. L PUPIL HAS IRREGULAR, CLOVER LIKE SHAPE, SLUGGISH IN RESPONSE. NO GAG OR COUGH WITH SUCTION. VERSED TITRATED OFF, PROPOFOL INFUSING, BUT TITRATED DOWN DUE TO BP. WILL DUE SEDATION VACATION ONCE SIEVE GRADER TENDER ARRIVES ONSITE.
--- NOTE | 2019-07-12 10:04 | NUR ---
DR VISIT DR. MEDRANO AND DR. MICHELLE AT THE BEDSIDE. PROPOFOL TURNED OFF AT 0930 AND PT'S SBP WENT UP TO 180S AFTERWARDS. DR. MEDRANO SAID TO LEAVE BP HOW IT IS FOR NOW. DR. MEDRANO SWITCHED PT TO SPONTANEOUS MODE AND PT IS PULLING GOOD VOLUMES OF 300-500ML. SPOKE WITH PT'S EX AND SON, EVARISTO TO PROVIDE UPDATE. CONTINUING TO MONITOR.
[2019-07-12 11:40] LABS: Anion Gap 11 mmol/L (6-16); Blood Urea Nitrogen 7 mg/dL (8-24); Bun/Creatinine Ratio 12.5 (12.0-20.0); CO2, Blood 23 mmol/L (21-32); Calcium, Blood 7.8 mg/dL (8.5-10.1); Chloride, Blood 96 mmol/L (98-108); Creatinine, Blood 0.56 mg/dL (0.60-1.20); Glomerular Filtration Rate >60 (60-); Glucose, Blood 131 mg/dL (70-99); Potassium, Blood 3.3 mmol/L (3.5-5.5); Sodium, Blood 130 mmol/L (136-145)
--- NOTE | 2019-07-12 12:17 | NUR ---
ECHOCARDIOGRAM COMPLETE
--- NOTE | 2019-07-12 12:37 | NUR ---
REASSESSMENT PT REMAINS SEDATED AND INTUBATED. SEDATION WAS LIFTED FOR AN HOUR AND A HALF AND PT HAD NO PURPOSEFUL MOVEMENT. HE GOT DIAPHORETIC, HYPERTENSIVE AND EYES MOVED TO AN UPWARD LEFT GAZE. DR. MEDRANO GAVE ORDERS TO RESTART SEDATION AND PLAN FOR HEAD CT IN THE MORNING. FAMILY WAS UPDATED BY DR. MEDRANO. LUNGS CLEAR. PT CONTINUES ON SPONTANEOUS EVEN WITH SEDATION ON. SR, BP IMPROVED WITH SEDATION BACK ON, SEE FLOWSHEET. CONTINUING TO MONITOR.
--- NOTE | 2019-07-12 13:38 | NUR ---
SEIZURE WENT IN ROOM TO CHECK ON PT BECAUSE VENT WAS ALARMING AND PT WAS HAVING A TONIC CLONIC SEIZURE. 2MG ATIVAN GIVEN AND VERSED GTT RESTARTED. SEIZURE RESOLVED. HR WENT INTO BIGEMINY FOR ABOUT 5 MINUTES, THEN CONVERTED BACK TO ST WITH A RATE IN THE LOW 100S. BP REMAINS STABLE. DR. MEDRANO NOTIFIED. CONTINUING TO MONITOR.
--- NOTE | 2019-07-12 16:55 | NUR ---
SHIFT SUMMARY PT HAD ONE MORE EPISODE OF SEIZURE LIKE TREMORING SINCE LAST NOTE THAT RESOLVED WITH ATIVAN. VERSED GTT TITRATED UP TO 5MG/HR AND THAT HAS KEPT PT SEDATED WELL STOPPED THE SEIZURE ACTIVITY. PUPILS REMAIN SLUGGISH AND UNEQUAL. MINIMAL GAG REFLEX AT TIMES, NO COUGH WITH SUCTIONING. SMALL AMT OF LEWIS SPUTUM SUCTIONED OUT OVER THE AFTERNOON. LUNGS CLEAR. SR IN THE 90S WITH OCCASIONAL PVCS. ONE EPISODE OF BIGEMINY AFTER SEIZURE. SBP IN THE 90-LOW 100S WITH VERSED GTT. PT WAS HYPERTENSIVE TO 180S WITHOUT SEDATION. OG WITH SCANT AMT OF BILE APPEARING FLUID IN THE TUBING. CAMPOS HAS PINK COLORED URINE WITH TINY BLOOD CLOTS THIS EVENING, BUT IS ALREADY CLEARING BACK TO YELLOW. FAMILY WAS UPDATED BY NURSING STAFF AND DR. MEDRANO TODAY.
--- NOTE | 2019-07-12 22:05 | NUR ---
PT INTUBATED AND SEDATED WITH VERSED GTT. UNRESPONSIVE TO NOXIOUS STIMULI. OCCASIONALLY WILL HAVE GROSS MOVEMENT OF EXTREMITIES THAT IS UNRELATED TO ANY STIMULI. PT DOES NOT OPEN EYE'S. L EYE DEVIATES TOWARD NOSE WHEN EYE'S ARE MANUALLY OPENED FOR ASSESSMENT. L PUPIL IS IRREGULAR AND LARGER THAN R PUPIL. BOTH ARE SLUGGISH IN REACTION TO LIGHT. PT HAS R BKA. SEE ASSESSMENT.
[2019-07-13 03:26] LABS: BASOPHILS ABSOLUTE AUTO 0.14 K/mm3 (0.00-0.23); BASOPHILS PERCENT AUTO 1 % (0-2); EOSINOPHILS ABSOLUTE AUTO 0.02 K/mm3 (0.00-0.68); EOSINOPHILS PERCENT AUTO 0 % (0-6); Hematocrit 32.8 % (37.0-53.0); Hemoglobin 10.4 g/dL (13.5-17.5); IMMATURE GRAN ABSOLUTE AUTO 0.15 K/mm3 (0.00-0.10); IMMATURE GRAN PERCENT AUTO 1 % (0-1); LYMPHOCYTES ABSOLUTE AUTO 2.15 K/mm3 (0.84-5.20); LYMPHOCYTES PERCENT AUTO 19 % (21-46); MONOCYTES ABSOLUTE AUTO 0.94 K/mm3 (0.16-1.47); MONOCYTES PERCENT AUTO 8 % (4-13); Mean Corpuscular HGB 29.7 pg (26.0-34.0); Mean Corpuscular HGB Conc 31.7 g/dL (31.5-36.5); Mean Corpuscular Volume 94 fL (80-100); Mean Platelet Volume 9.2 fL (9.1-12.4); NEUTROPHILS ABSOLUTE AUTO 8.19 K/mm3 (1.96-9.15); NEUTROPHILS PERCENT AUTO 71 % (41-73); Platelet Count 261 K/mm3 (150-400); RDW Coefficient Variation 18.3 % (11.7-14.2); RDW Standard Deviation 62.9 fL (35.1-46.3); White Blood Cell Count 11.59 K/mm3 (4.00-11.30)
[2019-07-13 03:43] LABS: Alanine Aminotransfer (ALT/SGP 11 U/L (12-78); Albumin, Blood 1.9 g/dL (3.4-5.0); Albumin/Globulin Ratio 0.5 (0.8-1.8); Alk Phos 115 U/L (50-136); Anion Gap 9 mmol/L (6-16); Aspartate Aminotrans (AST/SGOT 25 U/L (12-37); Bilirubin, Total 0.4 mg/dL (0.1-1.0); Blood Urea Nitrogen 6 mg/dL (8-24); Bun/Creatinine Ratio 9.8 (12.0-20.0); CO2, Blood 20 mmol/L (21-32); Calcium, Blood 7.8 mg/dL (8.5-10.1); Chloride, Blood 107 mmol/L (98-108); Creatinine, Blood 0.61 mg/dL (0.60-1.20); Globulin, Blood 3.7 g/dL (2.2-4.0); Glomerular Filtration Rate >60 (60-); Glucose, Blood 78 mg/dL (70-99); Sodium, Blood 136 mmol/L (136-145); Total Protein, Blood 5.6 g/dL (6.4-8.2)
--- NOTE | 2019-07-13 07:18 | NUR ---
SUMMARY PT INTUBATED WITH VERSED FOR SEDATION. NO SEIZURES DURING THIS SHIFT. SEDATION VACATION THIS AM FOR ABOUT HOUR AND HALF. PT IS NOT RESPONSIVE. WILL MOVE LE'S AT TIMES BUT NOT IN RELATION TO STIMULI. PUPILS UNEQUAL AND SLUGGISH. SLIGHT GAZE TO THE RIGHT. WENT TO CT THIS AM. NO OTHER CHANGES.
--- NOTE | 2019-07-13 08:30 | NUR ---
ASSESSMENT- PT SEDATED WITH VERSED 5 MG/HR, DECREASING, WILL MONITOR FOR ANY SIGNS OF SEIZURE ACTIVITY. ORALLY INTUBATED, TUBE SECURE. TOLERATING VENT SETTINGS, LUNGS CLEAR. APICAL REGULAR, NSR. BP STABLE. ABDOMEN SOFT, OGT CLAMPED, HOOKED TO LIS. UO VIA CAMPOS. ONLY MOVES LEFT LEG IN RESPONSE TO PAINFUL STIMULUS. NS AT 125 CC/HR, PERIPHERAL IV SITES INTACT. BILATERAL WRIST RESTRAINTS. WILL MONITOR
--- NOTE | 2019-07-13 10:41 | NUR ---
PHYSICIAN UPDATE- DR. SHAH HERE-UDPATED. FAMILY TO BE HERE AT 1215 TO DISCUSS PLAN. VERSED OFF. PT TOLERATING VENT. NO RESPONSE TO VERBAL STIMULUS
--- NOTE | 2019-07-13 12:54 | NUR ---
FAMILY HERE AT BEDSIDE. PALLIATIVE CARE RN HERE. PT REMAINS WITH EYES CLOSED, DOES MOVE RIGHT LEG SPONTANEOUSLY. NO SEIZURE MOVEMENT NOTED. VENT CHANGES-AC 12, NOW WITH RESPIRATORY RATE 19-20.
--- NOTE | 2019-07-13 13:00 | NUR ---
Clinical Visit: Pt is intubated. Family is at bedside to discuss care and direction of care/goals. Dr. Bazan is present and explains issues and problems. Family is wanting time to decide and discuss options. Time spent with the family after Dr. Bazan left. Questions answered to clarify. They are encouraged to ask for palliative care if further needs arise. No other concerns. Son is expressing guilt for starting CPR on his father when pt had a POLST documenting that he did not want this intervention or intubation. Family to move forward in decision-making together.
--- NOTE | 2019-07-13 14:40 | NUR ---
REVIEWED PLAN OF CARE WITH PT'S FAMILY. REQUEST TO RETURN TOMORROW A.M., MAY ELECT TO EXTUBATE PT TOMORROW IF NO CHANGE IN PT'S STATUS. VS UNCHANGED. TOLERATING VENT. NO SEIZURE ACTIVITY. NO PURPOSEFUL SPONTANEOUS MOVEMENT. RESTRAINTS OFF.
--- NOTE | 2019-07-13 16:00 | NUR ---
TUBE FEEDING STARTED VIA OGT, BILE DRAINAGE 25 CC DISCARDED. NEURO UNCHANGED. ORAL SECRETIONS CLEAR, SUCTIONING MODERATE AMOUNT CLEAR ETT SECRETIONS.
--- NOTE | 2019-07-13 16:50 | NUR ---
Initial spiritual care note: I met with Mr. Jensen' two sons and ex- at bedside. Eldest son was the only one who spoke. He states that he knows his dad "didn't want any of this." He also tells me there are some in the family "who aren't ready to let go." Family allowed me to pray at bedisde. Family plans to have discussion tonight about plan moving forward. Son says he will return tomorrow with decision. Pt appears non-responsive. Gentle anticipatory bereavement children counselor was well recieved.. I will remain available.
--- NOTE | 2019-07-13 17:48 | NUR ---
PT WITH STABLE VS. TOLERATING VENT, NSR, BP STABLE. NO SEDATION. NO RESPONSE TO VERBAL STIMULUS DOES MOVE RIGHT BKA SPONTANEOUSLY. NO ATTEMPTS TO PULL AT LINES. ABDOMEN REMAINS SOFT. CONTINUE TO MONITOR
--- NOTE | 2019-07-13 20:37 | NUR ---
ASSUMED CARE NOTE: ASSUMED CARE OF PT AT 1900, RECEVIED REPORT FROM NIRMAL GONZALEZ. PT IS UNRESPONSIVE AND MAKES UNPURPOSEFUL MOVEMENT OF RIGHT LEG. NYSTAGMUS NOTED TO BOTH EYES, EYES MOVING FROM SIDE TO SIDE WITH A CIRCULAR MOTION. PT HAS A GAG REFLEX. A FEW MINUTES INTO ASSESSMENT, PT'S HEAD BEGAN HAVE A JERKING MOVMENT, ATIVAN GIVEN PER EMAR FOR SEZUIRE ACTIVITY. PT ON VENT WITH SETTINGS @ AC12/400/5/21%, WITH SPO2 @ 96%. PT IS HAVING THICK YELLOW SECRETIONS, RT AT BEDSIDE, PERFORMED LAVAGE TO ETT. ETT SIZE 8.0, 26CM AT LIP. PT IS ON NO SEDATION. TEMP IS 100.8, WILL CONTINUE TO MONITOR, BLANKETS REMOVED, COOLED WASHCLOTHS APPLIED. BOWEL TONES HEARD IN ALL FOUR QUADRANTS. TUBE FEEDING RUNNING @ 25ML/HR , 5ML OF RESIDUAL. BP STABLE. PT IS SINUS WITH HR IN THE 90'S. CAMPOS PATNET AND DRAINING BANDAR COLOR URINE. HEPRAIN DRIP VERFIED WITH LISA Banda RN. WILL CONTINUE TO MONITOR PT T/O SHIFT. BED AT LOWEST LEVEL
--- NOTE | 2019-07-13 22:56 | NUR ---
UPDATE: PT IS HAVING COPIOUS AMOUNTS OF THICK YELLOW SPUTUM, PT'S SATURATIONS WILL DROP TO 86%, SUCTION IS PROVIDED AND STATURATIONS GO BACK UP TO 93% PT SOUNDS COARSE BILAT UPPER LOBES. CPT INITIATED IN BED, MUSIC THERAPY IN BED ALSO TURNED ON.
--- NOTE | 2019-07-14 01:17 | NUR ---
UPDATE: HEPRAIN DOSE REAJUSTED PER ORDER, HEPARIN DRIP RUNNING AT 21UNITS/KG/HR, ORDER VERIFIED WITH NIRMAL SAMUEL. RT CHANGED ETT SUCTIONING TUBING. PT'S LUNG SOUNDS HAVE CLEARED.
[2019-07-14 03:48] LABS: BASOPHILS ABSOLUTE AUTO 0.12 K/mm3 (0.00-0.23); BASOPHILS PERCENT AUTO 1 % (0-2); EOSINOPHILS ABSOLUTE AUTO 0.05 K/mm3 (0.00-0.68); EOSINOPHILS PERCENT AUTO 0 % (0-6); Hematocrit 33.1 % (37.0-53.0); Hemoglobin 10.3 g/dL (13.5-17.5); IMMATURE GRAN PERCENT AUTO 3 % (0-1); LYMPHOCYTES ABSOLUTE AUTO 1.65 K/mm3 (0.84-5.20); LYMPHOCYTES PERCENT AUTO 14 % (21-46); MONOCYTES ABSOLUTE AUTO 1.28 K/mm3 (0.16-1.47); MONOCYTES PERCENT AUTO 11 % (4-13); Mean Corpuscular HGB Conc 31.1 g/dL (31.5-36.5); Mean Corpuscular Volume 93 fL (80-100); Mean Platelet Volume 9.4 fL (9.1-12.4); NEUTROPHILS PERCENT AUTO 72 % (41-73); Platelet Count 244 K/mm3 (150-400); RDW Coefficient Variation 18.2 % (11.7-14.2); RDW Standard Deviation 62.7 fL (35.1-46.3); Red Blood Cell Count 3.55 M/mm3 (4.30-5.90)
[2019-07-14 04:05] LABS: Anion Gap 7 mmol/L (6-16); Blood Urea Nitrogen 8 mg/dL (8-24); Bun/Creatinine Ratio 13.1 (12.0-20.0); CO2, Blood 23 mmol/L (21-32); Calcium, Blood 7.7 mg/dL (8.5-10.1); Chloride, Blood 110 mmol/L (98-108); Creatinine, Blood 0.61 mg/dL (0.60-1.20); Glomerular Filtration Rate >60 (60-); Glucose, Blood 103 mg/dL (70-99); Magnesium, Blood 1.4 mg/dL (1.6-2.4); Phosphorus, Blood 3.3 mg/dL (2.5-4.9); Potassium, Blood 3.2 mmol/L (3.5-5.5); Sodium, Blood 140 mmol/L (136-145)
--- NOTE | 2019-07-14 04:54 | NUR ---
UPDATE: PT'S B/P ELEVATED, LOPRESSOR GIVEN PER EMAR. RT AT BEDSIDE PERFORMING SPONTANEOUS WEAN TRIAL. PT IS PULLING IN GOOD TIDAL VOLUMES, SPO2 MAINTAINING ABOVE 90% RR IN THE 20'S.
--- NOTE | 2019-07-14 05:18 | NUR ---
CALLED REGARDING ELEVATED BP. AND FOR LOW K+, MAG LAB RESULTS. ORDERS GIVEN FOR BP MEDS AND ELECTROLYTE REPLACEMENT.
[2019-07-14 05:22] LABS: PCO2 Arterial 33.2 mmHg (35-45); PO2 Arterial 61.5 mmHg (80-100); pH Blood Arterial 7.47 (7.35-7.45)
--- NOTE | 2019-07-14 06:01 | NUR ---
SHIFT SUMMARY: SEE PREVIOUS NOTES. PT CONTINUES TO BE ON VENT WITH NO CHANGES TO THE SETTINGS. PT HAS BEEN HAVING LARGE AMOUNTS OF THICK YELLOW SPUTUM. ETT SUCTION CATHETER WAS CHANGED TWICE DURING SHIFT, DUE TO IT CLOGGING UP WITH SECRETIONS. PT CONTINUES TO BE UNRESPONSIVE, PT MAKES NON-PURPOSFUL MOVEMENTS WITH RIGHT LEG. PT HAS NOT EXPERIENCED ANY MORE HEAD JERKING SINCE THE START OF SHIFT. PT'S TEMP HAS BEEN BETWEEN 99.1-100.0, COOL RAGS WERE PLACED ON PT, BLANKETS WERE REMOVED. PT'S BLOOD PRESSURE HAS BEEN ELEVATING, NEW ORDERS GIVEN FOR BP MEDS. PT HAS BEEN IN SINUS RYTHYM WITH HR IN THE 80'S WITH FREQUENT PVC'S. TUBE FEED WAS INCREASED TO 35ML/HR OF PIVIOT 1.5. CAMPOS PATNET AND DRAINING BANDAR COLORED URINE. WILL CONTINUE TO MONITOR PT UNTIL REPORT IS GIVEN TO ONCOMING SHIFT.
--- NOTE | 2019-07-14 08:15 | NUR ---
ASSESSMENT- PT WITH EYES CLOSED, PUPILS UNEQUAL BUT REACTIVE. NO RESPONSE TO VERBAL STIMULUS. MOVES LEFT LEG IN RESPONSE TO PAINFUL STIMULUS, MOVES RIGHT LEG SPONTANEOUSLY. ORALLY INTUBATED, TUBE SECURE. TOLERATING VENT SETTING. SUCTIONED MODERATE AMOUNT SECRETIONS FROM ETT. FEBRILE, TEMP 100. LUNGS COARSE BIBASILAR. NORMAL SINUS RHYTHM. K REPLACEMENT INFUSING, MAGNESIUM INFUSION COMPLETED. TUBE FEEDING VIA OGT PIVOT AT NOW GOAL 40 CC/HR. RESIDUAL 45 CC REPLACED. ABDOMEN SOFT. UO VIA CAMPOS. SMALL AMOUNT BLEEDING FROM GUMS AND FROM AROUND CAMPOS CATH. NS AT 125 CC/HR, PIV X 3 INTACT. HEPARIN GTT AT 21 UNITS/KG/HR.
--- NOTE | 2019-07-14 09:00 | NUR ---
RETURNED CALL FROM SON HEATHER, UPDATE GIVEN. PLANS FOR EEG TODAY. QUESTIONS ANSWERED. PT WITH STABLE VS. NO SEIZURE ACTIVITY
--- NOTE | 2019-07-14 10:50 | NUR ---
UPDATE TO PT'S SON. EEG BEING SET UP. HEPARIN GTT INCREASED TO 23 UNITS/KG/HR PER ORDERS
--- NOTE | 2019-07-14 12:09 | NUR ---
EEG COMPLETE. VSS. SHORT RUN OF IDIOVENTRICULAR RHYTHM, NSR NOW. CONTINUE TO MONITOR
--- NOTE | 2019-07-14 14:15 | NUR ---
NEURO UNCHANGED. TOLERATING VENT. LARGE AMOUNT ORAL SECRETIONS.
--- NOTE | 2019-07-14 16:10 | NUR ---
NEURO-BOTH ARMS FLEXION TO PAINFUL STIMULUS. PUPILS UNCHANGED. TOLERATING VENT. RX TWICE FOR SBP 160'S WITH LABETOLOL. NSR, NO ECTOPY. HEPARIN GTT INCREASED TO 24 UNITS/KG/HR, NS AT 125 CC/HR. TOLERATING TUBE FEEDS-LOW RESIDUALS. UO ADEQUATE. PIV X 3 INTACT.
--- NOTE | 2019-07-14 17:00 | NUR ---
PT'S SON AND EXWIFE HERE. PT UPDATE GIVEN, QUESTIONS ANSWERED. PLAN FOR CARE CONFERENCE TOMORROW
--- NOTE | 2019-07-14 17:56 | NUR ---
CARE CONFERENCE- SET FOR 10:00 A.M. 07/14 WITH PT'S SONS AND EX- AND DR. CARRASQUILLO.
--- NOTE | 2019-07-14 21:45 | NUR ---
ASSUMPTION OF CARE: PT UNRESPONSIVE. NOT A&O. NO RESPONSE TO PAIN AT THIS TIME. PUPILS UNEQUAL. GROSS MOVEMENT OF R LEG. NO GAG BUT COUGH INTACT. IN SR. SBP IN THE 140S, HR IN THE 70S. LUNG SOUNDS CLEAR. ON VENT. SETTINGS ARE 12/400/PEEP 5/ FIO2 21%. OG TUBE IN PLACE WITH CONTINUOUS TF. PIVOT 1.5 AT GOAL OF 40MLS/HR. 3 PIVS-PATENT. HEPARIN INFUSING AT 24U/KG-DOSING WEIGHT IS 66KG. PT IS CURRENTLY NOT ON ANY SEDATION. 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 PT HAD EEG DONE TODAY. PLAN IS FOR DR. CARRASQUILLO TO CONFERENCE WITH FAMILY TOMORROW.
--- NOTE | 2019-07-15 01:56 | NUR ---
SPOKE WITH [facility] IN PHARMACY RE APTT. NO CHANGES TO HEPARIN DOSING AT THIS TIME PER PHARMACIST.
--- NOTE | 2019-07-15 06:34 | NUR ---
SHIFT SUMMARY: PT NONRESPONSIVE. INTUBATED BUT NOT SEDATED. NO GAG, NO RESPONSE TO PAINFUL STIMULI. PUPILS UNEQUAL BUT REACTIVE. FEBRILE TOWARDS END OF SHIFT-TEMP 99. LUNG SOUNDS CLEAR. CONTINUES TO HAVE THICK SECRETIONS OUT OF ETT WELL MOD AMT OF ORAL SECRETIONS. ORAL SECRETIONS BLOOD TINGED TOWARDS END OF SHIFT. TONGUE ALSO APPEARS MORE SWOLLEN THAN AT BEGINNING OF SHIFT. SBP IN THE 140-180S. DID RECEIVE A DOSE OF HYDRALAZINE WITH GOOD EFFECT. HR IN THE 90S. BT PRESENT, NO BM THIS SHIFT. OG IN PLACE WITH PIVOT 1.5 AT GOAL AT 40MLS/HR. NO RESIDUALS THIS SHIFT. CAMPOS IN PLACE DRAINING LARGE AMOUNTS OF URINE. AT AROUND 6AM NOTICED URINE WENT FROM BANDAR COLOR TO RED IN COLOR. REQUESTED LAB DRAW PTT A LITTLE EARLIER THAN SCHEDULED. SKIN IS CLEAN AND DRY, ABRASIONS TO L ARM AND STERNUM, SCABS TO L FOOT, REDNESS TO BKA ON R LEG. WILL PASS REPORT TO ONCOMING SHIFT.
[2019-07-15 07:47] LABS: BASOPHILS ABSOLUTE AUTO 0.14 K/mm3 (0.00-0.23); BASOPHILS PERCENT AUTO 1 % (0-2); EOSINOPHILS ABSOLUTE AUTO 0.13 K/mm3 (0.00-0.68); EOSINOPHILS PERCENT AUTO 1 % (0-6); Hematocrit 33.1 % (37.0-53.0); Hemoglobin 10.6 g/dL (13.5-17.5); IMMATURE GRAN ABSOLUTE AUTO 0.49 K/mm3 (0.00-0.10); IMMATURE GRAN PERCENT AUTO 4 % (0-1); LYMPHOCYTES ABSOLUTE AUTO 1.56 K/mm3 (0.84-5.20); LYMPHOCYTES PERCENT AUTO 12 % (21-46); MONOCYTES ABSOLUTE AUTO 1.16 K/mm3 (0.16-1.47); MONOCYTES PERCENT AUTO 9 % (4-13); Mean Corpuscular HGB 29.6 pg (26.0-34.0); Mean Corpuscular Volume 93 fL (80-100); Mean Platelet Volume 9.3 fL (9.1-12.4); NEUTROPHILS ABSOLUTE AUTO 9.79 K/mm3 (1.96-9.15); NEUTROPHILS PERCENT AUTO 74 % (41-73); Platelet Count 289 K/mm3 (150-400); RDW Coefficient Variation 18.4 % (11.7-14.2); RDW Standard Deviation 62.9 fL (35.1-46.3); Red Blood Cell Count 3.58 M/mm3 (4.30-5.90); White Blood Cell Count 13.27 K/mm3 (4.00-11.30)
--- NOTE | 2019-07-15 08:00 | NUR ---
PT REMAINS UNRESPONSIVE. PUPILS UNEQUAL WITH LEFT 5 MM AND RIGHT 3 MM -BOTH SLUGGISH. NYSTAGMUS NOTED. FAMILY TO MEET WITH DR. CARRASQUILLO THIS AM TO DISCUSS PLAN OF CARE AND POSSIBLE COMFORT CARE STATUS. ETT 8.0 @ LIP-ETT TO VENT: AC 12, RR 20 , TIV 400, FIO2 25%, PEEP 5-SATS>90% LUNGS COARSE R>L. MODERATE TO LARGE AMOUNT OF THICK, CLEAR SECRETIONS SUCTIONED FROM MOUTH AND ETT. PT TONGUE IS VERY SWOLLEN, FIRM, AND MINIMAL SPACE IN HIS MOUTH TO DO ORAL CARE AND SUCTION. OGTF WITH MINIMAL RESIDUAL-TF @ GOAL. CAMPOS WITH HEMATURIA NOTED. PTT DRAWN EARLY.
[2019-07-15 08:12] LABS: Alanine Aminotransfer (ALT/SGP 8 U/L (12-78); Albumin, Blood 1.8 g/dL (3.4-5.0); Albumin/Globulin Ratio 0.4 (0.8-1.8); Alk Phos 119 U/L (50-136); Anion Gap 8 mmol/L (6-16); Aspartate Aminotrans (AST/SGOT 30 U/L (12-37); Bilirubin, Total 0.3 mg/dL (0.1-1.0); Blood Urea Nitrogen 8 mg/dL (8-24); Bun/Creatinine Ratio 17.4 (12.0-20.0); CO2, Blood 23 mmol/L (21-32); Chloride, Blood 106 mmol/L (98-108); Creatinine, Blood 0.46 mg/dL (0.60-1.20); Glomerular Filtration Rate >60 (60-); Glucose, Blood 127 mg/dL (70-99); Potassium, Blood 3.5 mmol/L (3.5-5.5); Sodium, Blood 137 mmol/L (136-145); Total Protein, Blood 5.8 g/dL (6.4-8.2)
--- NOTE | 2019-07-15 10:00 | NUR ---
RN PRESENT FOR MEETING WITH DR. CARRASQUILLO AND PT FAMILY. HIS DAUGHTER, JOSEFINA IS THE ELDEST, AND SHE WAS PRESENT VIA CELL PHONE(ON SPEAKER). THERE WAS EXTENSIVE DISCUSSION REGARDING PLAN OF CARE. DR. CARRASQUILLO PRESENTED PT PROGNOSIS AND TREATMENT OPTIONS. IT APPEARED IF THE FAMILY WAS IN AGREEMENT THAT PT SHOULD BE CHANGED TO COMFORT CARE. HOWEVER, PT SON TO CONFIRM THAT THERE IS NOT A POA FOR HEALTH CARE. PT DAUGHTER, KELSEY TO SPEAK WITH ALL FAMILY MEMBERS TO REACH A FINAL CONCENSUS.
--- NOTE | 2019-07-15 12:20 | NUR ---
NO NEURO CHANGES. BED BATH GIVEN AND LINEN CHANGE COMPLETED. SBP TRENDING 180-190'S-MED WITH HYDRALAZINE 10 MG IVP X 1 SEE EMAR. SBP 140'S AFTER HYDRALAZINE GIVEN.
--- NOTE | 2019-07-15 16:30 | NUR ---
NO ACUTE NEURO CHANGES THIS SHIFT. LUNGS SLIGHTLY LESS COARSE THAN PREVIOUS ASSESSMENTS. MAINTAINS SATS>90%-STILL ON FIO2 25% NO VENT CHANGES. CONTINUES TO TOLERATE TF WELL. CAMPOS NOW WITH CLEAR, YELLOW URINE TO UROMETER. RN SPOKE TO KELSEY, PT DAUGHTER-ALLOWED FOR HER TO ASK QUESTIONS REGARDING COMFORT CARE.SHE IS RELAYING INFORMATION TO THE REST OF THE FAMILY. SHE DOES EXPRESS THAT SHE FEELS IF THEY ARE CLOSER TO AN AGREEMENT REGARDING PLAN OF CARE. HOWEVER, SHE IS NOT READY TO MAKE A DECISION TODAY.
--- NOTE | 2019-07-15 20:00 | NUR ---
ASSUMPTION OF CARE: PT UNRESPONSIVE. NO GAG, NO RESPONSE TO PAINFUL STIMULI. PUPILS ARE UNEQUAL BUT REACTIVE. LUNG SOUNDS COARSE ON L SIDE AND DIM IN BASES. VENT SETTINGS ARE 12/400/5/25%. PT TOLERATING VENT WELL. HAS MOD THICK SECRETIONS OUT OF ETT. ORAL SECRETIONS ARE THIN AND BLOOD TINGED. TONGUE IS VERY SWOLLEN MAKING ORAL CARE AND ORAL SUCTIONING DIFFICULT. MILDLY HYPERTENSIVE WITH SBP IN THE 140-150S. IN SINUS RHYTHM. CAMPOS IN PLACE DRAINING BANDAR URINE WITH RED SEDIMENT. OG IN PLACE WITH PIVOT 1.5 AT GOAL. SKIN IS UNCHANGED AND INTACT. PT DOES HAVE GENERALIZED EDEMA T/O. 3 PIVS-2 IN RA AND 1 IN LA. HEPARIN INFUSING AT 24U/KG-DOSING WEIGHT IS 66KG. NORMAL SALINE INFUSING AT 125MLS/HR. WILL CONTINUE TO MONITOR
--- NOTE | 2019-07-15 22:33 | NUR ---
CALLED [facility] TO UPDATE ON PT'S APTT LEVEL. AWAITING HEPARIN DOSING CHANGES
[2019-07-16 03:23] LABS: BASOPHILS ABSOLUTE AUTO 0.11 K/mm3 (0.00-0.23); BASOPHILS PERCENT AUTO 1 % (0-2); EOSINOPHILS ABSOLUTE AUTO 0.19 K/mm3 (0.00-0.68); EOSINOPHILS PERCENT AUTO 2 % (0-6); Hemoglobin 9.6 g/dL (13.5-17.5); IMMATURE GRAN ABSOLUTE AUTO 0.51 K/mm3 (0.00-0.10); IMMATURE GRAN PERCENT AUTO 5 % (0-1); LYMPHOCYTES ABSOLUTE AUTO 1.61 K/mm3 (0.84-5.20); LYMPHOCYTES PERCENT AUTO 14 % (21-46); MONOCYTES ABSOLUTE AUTO 1.13 K/mm3 (0.16-1.47); MONOCYTES PERCENT AUTO 10 % (4-13); Mean Corpuscular Volume 94 fL (80-100); Mean Platelet Volume 9.5 fL (9.1-12.4); NEUTROPHILS ABSOLUTE AUTO 7.67 K/mm3 (1.96-9.15); NEUTROPHILS PERCENT AUTO 68 % (41-73); Platelet Count 282 K/mm3 (150-400); RDW Coefficient Variation 18.3 % (11.7-14.2); RDW Standard Deviation 63.4 fL (35.1-46.3); White Blood Cell Count 11.22 K/mm3 (4.00-11.30)
[2019-07-16 03:44] LABS: Alanine Aminotransfer (ALT/SGP 8 U/L (12-78); Albumin, Blood 1.7 g/dL (3.4-5.0); Albumin/Globulin Ratio 0.5 (0.8-1.8); Alk Phos 107 U/L (50-136); Anion Gap 7 mmol/L (6-16); Aspartate Aminotrans (AST/SGOT 28 U/L (12-37); Bilirubin, Total 0.3 mg/dL (0.1-1.0); Blood Urea Nitrogen 10 mg/dL (8-24); Bun/Creatinine Ratio 23.3 (12.0-20.0); CO2, Blood 25 mmol/L (21-32); Calcium, Blood 7.9 mg/dL (8.5-10.1); Chloride, Blood 105 mmol/L (98-108); Creatinine, Blood 0.43 mg/dL (0.60-1.20); Globulin, Blood 3.7 g/dL (2.2-4.0); Glomerular Filtration Rate >60 (60-); Glucose, Blood 130 mg/dL (70-99); Potassium, Blood 3.3 mmol/L (3.5-5.5); Sodium, Blood 137 mmol/L (136-145); Total Protein, Blood 5.4 g/dL (6.4-8.2)
--- NOTE | 2019-07-16 05:21 | NUR ---
PT TONGUE VERY SWOLLEN WITH BLOOD TINGED ORAL SECRETIONS. PT POSSIBLY BITING DOWN ON TONGUE. BITE BLOCK PLACED. TONGUE IS VERY RED AND BOTTOM LOOKS LIKE RAW [employer]BURGER. MOD AMOUNT OF BLOOD SUCTIONED FROM MOUTH. ORAL CARE HELD AT THIS TIME.
--- NOTE | 2019-07-16 05:55 | NUR ---
SHIFT SUMMARY: NO ACUTE CHANGES T/O SHIFT. VENT SETTINGS REMAIN UNCHANGED. LUNG SOUNDS CLEAR. PT HYPERTENSIVE WITH SUCTIONING AND REPOSITIONING. IN SR. CAMPOS IN PLACE DRAINING CLEAR YELLOW-BANDAR URINE. NO BM THIS SHIFT. SKIN IS CLEAN AND DRY. PERIPHERAL IVS REMAIN IN PLACE. HEPARIN INFUSING AT 25 UNITS/KG AND NS INFUSING AT 125MLS/HR. PT WAS FOUND TO BE POSSIBLY BITING DOWN ON TONGUE. BITE BLOCK PLACED AND TAPED TO ETT. MOD AMT OF BLOODY ORAL SECRETIONS WERE SUCTIONED OUT. WILL PASS REPORT TO ONCOMING SHIFT
--- NOTE | 2019-07-16 07:45 | NUR ---
PT REMAINS COMATOSE. PT OPENED EYES WITH NOXIOUS STIMULI AND IS BLINKING. PUPILS REMAIN UNEQUAL. RIGHT, UPWARD GAZE. NO CORNEAL REFLEX. PT IS STILL CHEWING ON ETT/BITE BLOCK. PT TONGUE IS RED AND SWOLLEN WITH SOME ABRASIONS FROM BITING IT. ORAL SUCTION PRODUCTIVE OF LARGE AMOUNT OF BLOODY SECRETIONS A RESULT. PROPOFOL CONTINUES @ 10 MCG/KG/MIN-IT WAS INITITATED DURING THE NIGHT PT WAS COUGHING AND HIGH PRESSURING THE VENT. ETT 8.0 26 @ LIP WITH BITE BLOCK TAPED IN PLACE WELL. LUNGS SLIGHTLY COARSE THIS AM LEFT>RIGHT. MAINTAINS SATS>90% ON FIO2 25%. PT TOLERATING TF WELL @ GOAL OF 40 CC/HR. CAMPOS WITH ADEQUATE URINE OUTPUT-SOME RED SEDIMENT NOTED. HEPARIN DRIP CONTINUES-NEXT PTT @ 1100.
--- NOTE | 2019-07-16 09:35 | NUR ---
DR. MARIA HERE TO SEE PT. PROPOFOL DRIP OFF. NS TKO.
--- NOTE | 2019-07-16 11:22 | NUR ---
DR. CARRASQUILLO IN TO SEE PT @ APROX. 1100. UPDATED TO CURRENT VS AND STATUS. NO ACUTE NEURO CHANGES. DR. CARRASQUILLO UPDATED KELSEY, PT DAUGHTER. THE FAMILY INTENDS TO REACH A DECISION ON PLAN OF CARE BY 1600 TODAY.
--- NOTE | 2019-07-16 16:25 | NUR ---
PT PALE AND DIAPHORETIC. HR 100'S WITH FREQUENT ECTOPY NOTED. 188/130. PT COUGHING AND CHEWING ON ETT-BITE BLOCK HAD SLIPPED OUT PARTIAL. THEREFORE, REMOVED BITE BLOCK. PT TONGUE REMAINS SWOLLEN AND STIFF-WITH ABRASIONS NOTED. FEWER RED ORAL SECRETIONS THIS AFTERNOON. MED WITH ATIVAN 2 MG IVP X 1 -SEE EMAR. SHORTLY AFTER MED WITH ATIVAN, HR RETURNED TO 90'S AND SBP 150'S. PT NOT LONGER COUGHING.
--- NOTE | 2019-07-16 17:35 | NUR ---
NO ACUTE NEURO CHANGES THIS SHIFT. STILL AWAITING PHONE CALL FROM PT DAUGHTER, KELSEY TO VERIFY THAT THE FAMILY HAS REACHED THE DECISION TO MAKE PT COMFORT CARE STATUS.
--- NOTE | 2019-07-16 18:32 | NUR ---
PT DAUGHTER CALLED. THE FAMILY HAS DECIDED TO MAKE PT COMFORT CARE AT THIS TIME. DR. MARIA MADE AWARE. DR. CARRASQUILLO INFORMED.
--- NOTE | 2019-07-16 18:51 | NUR ---
PT EXTUBATED-NOW COMFORT CARE. 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
--- NOTE | 2019-07-16 19:05 | NUR ---
PT FAMILY ARRIVED AT BEDSIDE. PT RESP AGONAL. ECG SHOWS JUNCTIONAL RHYTHM WITH RATE IN THE 40'S. PAINT CAROTID PULSE.
--- NOTE | 2019-07-16 19:06 | NUR ---
PT @ 1906 WITH FAMILY AT BEDSIDE.
== END 2019-07-16 19:06 | DRG 207 ==
LOC: ER 23:28 → ICUE 07-12 02:52 → ICUW 07-12 02:52 → ICUE 07-12 03:00
PROVIDERS: Emergency Medicine; Family Medicine; Internal Medicine Critical Care Medicine; ADMIT Internal Medicine
PROC: 0BH18EZ Insertion of Endotracheal Airway into Trachea, Via Natural or Artificial Opening Endoscopic (ICD-10-PCS; principal; 2019-07-11)
PROC: 5A1955Z Respiratory Ventilation, Greater than 96 Consecutive Hours (ICD-10-PCS; 2019-07-11)
DX: J96.01 Acute respiratory failure with hypoxia (principal); J18.9 Pneumonia, unspecified organism; I21.A1 Myocardial infarction type 2; E87.1 Hypo-osmolality and hyponatremia; E87.2 Acidosis; G93.1 Anoxic brain damage, not elsewhere classified; I10 Essential (primary) hypertension; E78.00 Pure hypercholesterolemia, unspecified; Z51.5 Encounter for palliative care; G43.909 Migraine, unspecified, not intractable, without status migrainosus; M10.9 Gout, unspecified; M54.9 Dorsalgia, unspecified; R40.2112 Coma scale, eyes open, never, at arrival to emergency department; R40.2212 Coma scale, best verbal response, none, at arrival to emergency department; R40.2332 Coma scale, best motor response, abnormal flexion, at arrival to emergency department; E11.9 Type 2 diabetes mellitus without complications; N40.0 Benign prostatic hyperplasia without lower urinary tract symptoms; G54.6 Phantom limb syndrome with pain; Z66 Do not resuscitate; F31.9 Bipolar disorder, unspecified; F03.90 Unspecified dementia, unspecified severity, without behavioral disturbance, psychotic disturbance, mood disturbance, and anxiety; G89.4 Chronic pain syndrome; E87.6 Hypokalemia; Z79.84 Long term (current) use of oral hypoglycemic drugs; Z98.890 Other specified postprocedural states; Z89.512 Acquired absence of left leg below knee; Z90.79 Acquired absence of other genital organ(s); Z79.891 Long term (current) use of opiate analgesic
CPT/HCPCS: 31500; 31720; 36415; 36600; 51702; 70450; 71045; 80048; 80053; 81001; 82803; 82947; 83605; 83735; 83880; 84100; 84443; 84484; 85025; 85610; 85730; 87040; 87070; 87086; 87205; 93005; 93010; 93306; 94002; 94003; 95819; 96361; 96374-59; 96375; 99285-25; A9270-GY; C9113; G0480; J0330; J0360; J0696; J1644; J2060; J2250; J2704; J3010; J3475; J3480; J7030